=== PATIENT | female | born 1955 | race Caucasian/White ===

== ENCOUNTER 2022-03-10 01:05 | Inpatient (IN) | payer BC, MEDICARE ==
[2022-03-10] MEDS ORDERED: DILTIAZEM DRIP BOLUS FROM BAG 1 MG SOLN IV ONE ×3 (01:23→07:02)
[2022-03-10] MEDS: DILTIAZEM 125 MG in SODIUM CHLORIDE 0.9% 100 ML IV SCH ×3 (01:39→17:53)
[2022-03-10 01:55] LABS: Basophils # (A) 0.1 k/uL (0-0.2); Basophils % (A) 1 %; Eosinophils # (A) 0.1 k/uL (0-0.7); Eosinophils % (A) 1 %; HCT 38.6 % (34.0-46.0); HGB 12.7 gm/dL (11.4-16.0); Lymphocytes # (A) 1.9 k/uL (1.0-4.8); Lymphocytes % (A) 21 %; MCH 31.5 pg (25.0-35.0); MCV 95.5 fL (80.0-100.0); Mean Platelet Volume 9.9; Monocytes # (A) 0.3 k/uL (0-1.0); Monocytes % (A) 3 %; Neutrophils # (A) 6.3 k/uL (1.3-7.7); Neutrophils % (A) 72 %; Platelet Count 278 k/uL (150-450); RBC 4.04 m/uL (3.80-5.40); RDW 13.5 % (11.5-15.5); WBC 8.8 k/uL (3.8-10.6)
--- NOTE | 2022-03-10 02:00 | XR ---
EXAMINATION TYPE: XR chest 1V portable DATE OF EXAM: 03/10/2022 COMPARISON: NONE HISTORY: Dysrhythmia TECHNIQUE: Single view FINDINGS: There is slight coarsening of interstitial markings. Heart size is fairly normal. No heart failure. There are no hilar masses. Bony thorax is intact. No definite pleural effusion. IMPRESSION: Mild pulmonary fibrotic changes. No heart failure.
[2022-03-10 02:05] LABS: ALT 58 U/L (4-34); AST 34 U/L (14-36); African American GFR (CKD) >90 (>60 ml/min/1.73 sqM); Albumin 4.6 g/dL (3.5-5.0); Alkaline Phosphatase 50 U/L (38-126); Anion Gap 7 mmol/L; Blood Urea Nitrogen 14 mg/dL (7-17); Calcium 9.3 mg/dL (8.4-10.2); Carbon Dioxide 21 mmol/L (22-30); Chloride 107 mmol/L (98-107); Glucose 115 mg/dL (74-99); Magnesium 2.2 mg/dL (1.6-2.3); Non-African American GFR(CKD) 80 (>60 ml/min/1.73 sqM); Potassium 4.1 mmol/L (3.5-5.1); Sodium 135 mmol/L (137-145); Total Bilirubin 0.7 mg/dL (0.2-1.3)
[2022-03-10 02:08] LABS: Partial Thromboplastin Time 25.5 sec (22.0-30.0); Prothrombin Time 11.1 sec (9.0-12.0)
[2022-03-10] MEDS ORDERED: NITROGLYCERIN SL TABS 0.4 MG TAB SUBLINGUAL PRN (04:52)
[2022-03-10] MEDS: SODIUM CHLORIDE 0.9% 1,000 ML IV SCH (06:02)
--- NOTE | 2022-03-10 08:08 | ED ---
SOB HPI - General Chief Complaint: Shortness of Breath Stated Complaint: KARLY Time Seen by Provider: 03/10/22 01:22 Source: patient Mode of arrival: ambulatory Limitations: no limitations - History of Present Illness Initial Comments: 's patient is a 66-year-old woman with previous history of paroxysmal atrial fibrillation. The patient states that she feels she went back into atrial fibrillation around 3 in the morning on March 09. The patient states she was in bed and woke feeling short of breath and also noted palpitations. She was not having any chest pain. Patient states her episodes of atrial fibrillation are becoming more frequent. She thinks that over the past couple of weeks she may have been spending more time in A. fib then in sinus rhythm. She states that she is scheduled to have an ablation this month with Dr. Muñoz. The patient is not having any other anginal symptoms, no diaphoresis, syncope, nausea or vomiting. She had spoken with the on-call line and was instructed to come to the ER she was not feeling better. MD Complaint: shortness of breath Onset/Timin -: hour(s) Severity scale (1-10): 0 Consistency: constant Improves With: nothing Worsens With: lying flat Known History Of: other (Atrial fibrillation) Associated Symptoms: cough, palpitations Treatments Prior to Arrival: none - Related Data Home Oxygen Therapy: No Allergies Allergy/AdvReac Type Severity Reaction Status Date / Time aspirin Allergy Unknown Verified 03/10/22 01:09 Review of Systems ROS Statement: Those systems with pertinent positive or pertinent negative responses have been documented in the HPI. ROS Other: All systems not noted in ROS Statement are negative. Constitutional: Denies: fever, chills, weakness Respiratory: Reports: cough, dyspnea. Denies: hemoptysis Cardiovascular: Reports: palpitations, orthopnea. Denies: chest pain, edema, syncope Gastrointestinal: Denies: abdominal pain, nausea, vomiting, diarrhea Genitourinary: Denies: dysuria, hematuria Musculoskeletal: Denies: back pain Skin: Denies: rash Neurological: Denies: headache, weakness Past Medical History Past Medical History: Atrial Fibrillation, Cancer, Hypertension Additional Past Medical History / Comment(s): breast cancer History of Any Multi-Drug Resistant Organisms: None Reported Past Surgical History: Breast Surgery Past Anesthesia/Blood Transfusion Reactions: No Reported Reaction Past Psychological History: No Psychological Hx Reported Smoking Status: Former smoker Past Alcohol Use History: None Reported Past Drug Use History: None Reported General Exam Limitations: no limitations General appearance: alert, in no apparent distress Head exam: Present: atraumatic, normocephalic Eye exam: Present: normal appearance. Absent: scleral icterus, conjunctival injection Neck exam: Present: normal inspection Respiratory exam: Present: rales (There are crackles at the bases the lungs bilaterally). Absent: respiratory distress, wheezes, rhonchi, stridor, accessory muscle use Cardiovascular Exam: Present: tachycardia, irregular rhythm (Heart rate is in the upper 120s at my exam), normal heart sounds. Absent: systolic murmur, diastolic murmur, rubs, gallop GI/Abdominal exam: Present: soft. Absent: distended, tenderness, guarding, rebound, rigid, mass, pulsatile mass, hernia Extremities exam: Present: normal inspection, normal capillary refill. Absent: pedal edema, calf tenderness Back exam: Present: normal inspection. Absent: CVA tenderness (R), CVA tenderness (L) Neurological exam: Present: alert Skin exam: Present: warm, dry, intact, normal color. Absent: rash Course Vital Signs 03/10/22 03/10/22 03/10/22 01:09 05:20 05:36 Temperature 98.2 F 98 F Pulse Rate 91 140 H Pulse Rate [ 126 H Pulse Oximetery ] Respiratory 18 17 18 Rate Blood Pressure 121/90 112/60 Blood Pressure 119/83 [Left Arm] O2 Sat by Pulse 97 98 100 Oximetry Medical Decision Making - Medical Decision Making This patient is a 66-year-old woman with history of atrial fibrillation who presents with atrial fibrillation and rapid ventricular rate. She is started on Cardizem, resumed bolus and IV drip. Her rate slowed from the 140s to the 1 teens to 120s. Her respiratory status has improved somewhat. Case is discussed with Dr. Gómez johnson admit. We'll obtain cardiology consultation and serial cardiac enzymes. - Lab Data Result diagrams: 03/10/22 01:42 03/10/22 01:42 Lab Results 03/10/22 03/10/22 03/10/22 Range/Units 01:42 01:42 01:42 WBC 8.8 (3.8-10.6) k/uL RBC 4.04 (3.80-5.40) m/uL Hgb 12.7 (11.4-16.0) gm/dL Hct 38.6 (34.0-46.0) % MCV 95.5 (80.0-100.0) fL MCH 31.5 (25.0-35.0) pg MCHC 33.0 (31.0-37.0) g/dL RDW 13.5 (11.5-15.5) % Plt Count 278 (150-450) k/uL MPV 9.9 Neutrophils % 72 % Lymphocytes % 21 % Monocytes % 3 % Eosinophils % 1 % Basophils % 1 % Neutrophils # 6.3 (1.3-7.7) k/uL Lymphocytes # 1.9 (1.0-4.8) k/uL Monocytes # 0.3 (0-1.0) k/uL Eosinophils # 0.1 (0-0.7) k/uL Basophils # 0.1 (0-0.2) k/uL PT 11.1 (9.0-12.0) sec INR 1.0 (<1.2) APTT 25.5 (22.0-30.0) sec Sodium 135 L (137-145) mmol/L Potassium 4.1 (3.5-5.1) mmol/L Chloride 107 (98-107) mmol/L Carbon Dioxide 21 L (22-30) mmol/L Anion Gap 7 mmol/L BUN 14 (7-17) mg/dL Creatinine 0.79 (0.52-1.04) mg/dL Est GFR (CKD-EPI)AfAm >90 (>60 ml/min/1.73 sqM) Est GFR (CKD-EPI)NonAf 80 (>60 ml/min/1.73 sqM) Glucose 115 H (74-99) mg/dL Calcium 9.3 (8.4-10.2) mg/dL Magnesium 2.2 (1.6-2.3) mg/dL Total Bilirubin 0.7 (0.2-1.3) mg/dL AST 34 (14-36) U/L ALT 58 H (4-34) U/L Alkaline Phosphatase 50 (38-126) U/L Troponin I (0.000-0.034) ng/mL Total Protein 7.0 (6.3-8.2) g/dL Albumin 4.6 (3.5-5.0) g/dL TSH 5.290 H (0.465-4.680) mIU/L 03/10/22 Range/Units 01:42 WBC (3.8-10.6) k/uL RBC (3.80-5.40) m/uL Hgb (11.4-16.0) gm/dL Hct (34.0-46.0) % MCV (80.0-100.0) fL MCH (25.0-35.0) pg MCHC (31.0-37.0) g/dL RDW (11.5-15.5) % Plt Count (150-450) k/uL MPV Neutrophils % % Lymphocytes % % Monocytes % % Eosinophils % % Basophils % % Neutrophils # (1.3-7.7) k/uL Lymphocytes # (1.0-4.8) k/uL Monocytes # (0-1.0) k/uL Eosinophils # (0-0.7) k/uL Basophils # (0-0.2) k/uL PT (9.0-12.0) sec INR (<1.2) APTT (22.0-30.0) sec Sodium (137-145) mmol/L Potassium (3.5-5.1) mmol/L Chloride (98-107) mmol/L Carbon Dioxide (22-30) mmol/L Anion Gap mmol/L BUN (7-17) mg/dL Creatinine (0.52-1.04) mg/dL Est GFR (CKD-EPI)AfAm (>60 ml/min/1.73 sqM) Est GFR (CKD-EPI)NonAf (>60 ml/min/1.73 sqM) Glucose (74-99) mg/dL Calcium (8.4-10.2) mg/dL Magnesium (1.6-2.3) mg/dL Total Bilirubin (0.2-1.3) mg/dL AST (14-36) U/L ALT (4-34) U/L Alkaline Phosphatase (38-126) U/L Troponin I <0.012 (0.000-0.034) ng/mL Total Protein (6.3-8.2) g/dL Albumin (3.5-5.0) g/dL TSH (0.465-4.680) mIU/L - EKG Data -: EKG Interpreted by Me EKG shows normal: axis (Normal), intervals (Normal) Rate: tachycardia Interpretation: nonspecific ST-T wave changes, other (Underlying rhythm is atrial fibrillation with rate approximately 140s) Critical Care Time Critical Care Time: Yes (30 minutes) Disposition Clinical Impression: Atrial fibrillation with rapid ventricular response Disposition: ADMITTED IP TO THIS HOSP Condition: Fair Is patient prescribed a controlled substance at d/c from ED?: No
[2022-03-10] MEDS ORDERED: HEPARIN SODIUM,PORCINE/PF 5,000 UNIT/0.5 ML SYRINGE SQ SCH (09:00)
[2022-03-10] MEDS: METOPROLOL TARTRATE 25 MG TAB PO SCH ×3 (09:17→23:13)
[2022-03-10] MEDS: FAMOTIDINE 20 MG/2 ML VIAL IV SCH ×2 (09:17→20:20)
[2022-03-10] MEDS: APIXABAN 5 MG TAB PO SCH ×2 (09:17→20:20)
--- NOTE | 2022-03-10 09:28 | P.HPIM ---
History of Present Illness This is a pleasant 66 years old female with past medical history of Atrial Fibrillation on liquids at home, breast Cancer, Hypertension. She sees Dr. SHABANA Rogers her senior infrastructure architect. Presents because of increasing shortness of breath over the last 2 days. No chest pain. She has dry cough. And generalized weakness. She denies any abdominal pain or vomiting. No dysuria. No headache or dizziness. No weakness or numbness. No fever. She was taken her medication including Eliquis at home. No history of smoking, alcohol or illicit drugs. On admission she was tachycardic 140, rest of vitals LOOKS stable. Labs including CBC, INR, BMP, liver enzymes are unremarkable. TSH is elevated 5.2 Chest x-ray: Mild pulmonary fibrotic changes. No heart failure. Patient was started on aspirin and Cardizem drip Review of Systems CONSTITUTIONAL: No fever, no malaise, no fatigue. HEENT: No recent visual problems or hearing problems. Denied any sore throat. CARDIOVASCULAR: No orthopnea, PND, no palpitations, no syncope. PULMONARY: No chest wall tenderness, no hemoptysis. GASTROINTESTINAL: No diarrhea, no nausea, no vomiting, no abdominal pain. Normoactive bowel sounds. NEUROLOGICAL: No headaches, no weakness, no numbness. HEMATOLOGICAL: Denies any bleeding or petechiae. GENITOURINARY: Denies any burning micturition, frequency, or urgency. MUSCULOSKELETAL/RHEUMATOLOGICAL: Denies any joint pain, swelling, or any muscle pain. ENDOCRINE: Denies any polyuria or polydipsia. Past Medical History Past Medical History: Atrial Fibrillation, Cancer, Hypertension Additional Past Medical History / Comment(s): breast cancer History of Any Multi-Drug Resistant Organisms: None Reported Past Surgical History: Breast Surgery Past Anesthesia/Blood Transfusion Reactions: No Reported Reaction Past Psychological History: No Psychological Hx Reported Smoking Status: Former smoker Past Alcohol Use History: None Reported Past Drug Use History: None Reported Medications and Allergies Allergies Allergy/AdvReac Type Severity Reaction Status Date / Time aspirin Allergy Unknown Verified 03/10/22 01:09 Physical Exam Vitals: Vital Signs Temp Pulse Pulse Resp BP BP BP 03/10/22 08:35 98.3 F 131 H 14 111/81 03/10/22 07:11 124 H 107/81 03/10/22 06:57 147 H 122/79 03/10/22 05:36 98 F 126 H 18 119/83 03/10/22 05:20 140 H 17 112/60 03/10/22 01:09 98.2 F 91 18 121/90 Pulse Ox 03/10/22 08:35 97 03/10/22 07:11 03/10/22 06:57 03/10/22 05:36 100 03/10/22 05:20 98 03/10/22 01:09 97 Intake and Output 03/09/22 03/10/22 03/10/22 22:59 06:59 14:59 Intake Total 118 Balance 118 Intake: Oral 118 Other: # Voids 1 Weight 88.451 kg -GENERAL: The patient is alert and oriented x3, not in any acute distress. Obese HEENT: Pupils are round and equally reacting to light. EOMI. No scleral icterus. No conjunctival pallor. Normocephalic, atraumatic. No pharyngeal erythema. No thyromegaly. CARDIOVASCULAR: S1 and S2 present. No murmurs, rubs, or gallops. PULMONARY: Chest is clear to auscultation, no wheezing or crackles. ABDOMEN: Soft, nontender, nondistended, normoactive bowel sounds. No palpable organomegaly. MUSCULOSKELETAL: No joint swelling or deformity. EXTREMITIES: No cyanosis, clubbing, or pedal edema. NEUROLOGICAL: Gross neurological examination did not reveal any focal deficits. SKIN: No rashes. No petechiae Results CBC & Chem 7: 03/10/22 01:42 03/10/22 01:42 Labs: Abnormal Lab Results - Last 24 Hours (Table) 03/10/22 Range/Units 01:42 Sodium 135 L (137-145) mmol/L Carbon Dioxide 21 L (22-30) mmol/L Glucose 115 H (74-99) mg/dL ALT 58 H (4-34) U/L TSH 5.290 H (0.465-4.680) mIU/L Thrombosis Risk Factor Assmnt - Choose All That Apply Any of the Below Risk Factors Present?: Yes Each Risk Factor Represents 2 Points: Age 61-74 years Thrombosis Risk Factor Assessment Total Risk Factor Score: 2 Thrombosis Risk Factor Assessment Level: Low Risk Assessment and Plan Assessment: A. fib with RVR Hypertension History of breast cancer Plan: This is a pleasant 66 years old female who presents with A. fib and RVR Continue with Cardizem drip Cardiology consult check thyroid test Labs and medication were reviewed.. Continue same treatment. Continue with symptomatic treatment. Resume home medication. Monitor lytes and vitals. DVT and GI prophylaxis. Further recommendations depends on the clinical course of the patient DVT prophylaxis: Subcutaneous heparin GI Prophylaxis: Pepcid Prognosis is guarded
--- NOTE | 2022-03-10 10:11 | P.CRDCN ---
History of Present Illness Consult date: 03/10/22 History of present illness: HISTORY OF PRESENT ILLNESS: This is a 66-year-old female with a past medical history significant for paroxysmal atrial fibrillation, hypertension, hyperlipidemia, former nicotine dependence, and prior alcohol abuse. Patient follows in the office with Dr. Rogers. We have been asked to see the patient in consultation for A. fib with RVR. Patient examined at the bedside. Patient presented to the hospital for chief complaint of palpitations. Patient was found to be in A. fib with RVR. The patient was actually seen in the office on 03/07/2022. The patient was started on Multaq. Her urine had been previously discontinued. She is scheduled for an ablation on 04/19/2022. She denies having any previous cardioversions. The patient remains in atrial fibrillation with RVR. She is on a Cardizem drip at 15 mg an hour. Blood pressure 107/81. * EKG reveals A. fib with RVR * Chest xray mild pulmonary fibrotic changes. No heart failure. * Laboratory data: WBC 8.8. Hemoglobin 12.7. Platelet count 278. Sodium 135. Potassium 4.1. BUN 14. Creatinine 0.79. Magnesium 2.2. TSH 5.290. Free T4 1 0.57. Troponin negative 2. * Current home cardiac medications include ELiquis 5mg BID, Multaq 400mg BID, irbesartan 75 mg at night, and metoprolol tartrate 25 mg 3 times a day * Most recent echocardiogram obtained in February 2020 revealed ejection fraction 55% * Cardiac catheterization history: December 2018 revealing right dominant system. Normal filling pressures and no gradient across the aortic valve. No significant obstructive CAD. REVIEW OF SYSTEMS: At the time of my exam: CONSTITUTIONAL: Denies fever or chills. HEENT: Denies blurred vision, vision changes, or eye pain. Denies hemoptysis CARDIOVASCULAR: Denies chest pain. Denies orthopnea. Denies PND. Denies palpitations RESPIRATORY: Denies shortness of breath. GASTROINTESTINAL: Denies abdominal pain. Denies nausea or vomiting. HEMATOLOGIC: Denies bleeding disorders. GENITOURINARY: Denies any blood in urine. SKIN: Denies pruitis. Denies rash. PHYSICAL EXAM: VITAL SIGNS: Reviewed. GENERAL: Well-developed in no acute distress. HEENT: Head is normocephalic. Pupils are equal, round. Sclerae anicteric. Mucous membranes of the mouth are moist. Neck supple. No JVD or thyromegaly LUNGS: Respirations even and unlabored. Lungs essentially clear to auscultation bilaterally. HEART: Tachycardic. Irregular rate and rhythm. S1 and S2 heard. ABDOMEN: Soft. Nondistended. Nontender. EXTREMITIES: Normal range of motion. No clubbing or cyanosis. Peripheral pulses intact. No lower extremity edema NEUROLOGIC: Awake and alert. Oriented x 3. ASSESSMENT: Palpitations Paroxysmal atrial fibrillation with RVR Hypertension Hyperlipidemia Former nicotine dependence Former alcohol abuse PLAN: Obtain 2D echo to assess cardiac structure and function. Will wait until patients HR are better controlled to perform echo. Continue IV Cardizem Resume home dose of metoprolol and Eliquis Resume Eliquis Hold irbesartan as patient's pressures are soft with SBP around 100-110. Patient scheduled for Ablation with Dr. Muñoz 04/19/2022 Possible CV tomorrow. NPO at midnight Further recommendations pending patient course Nurse practitioner note has been reviewed by physician. Signing provider agrees with the documented findings, assessment, and plan of care. Past Medical History Past Medical History: Atrial Fibrillation, Cancer, Hypertension Additional Past Medical History / Comment(s): breast cancer History of Any Multi-Drug Resistant Organisms: None Reported Past Surgical History: Breast Surgery Past Anesthesia/Blood Transfusion Reactions: No Reported Reaction Past Psychological History: No Psychological Hx Reported Smoking Status: Former smoker Past Alcohol Use History: None Reported Past Drug Use History: None Reported Medications and Allergies Home Medications Medication Instructions Recorded Confirmed Type Apixaban [Eliquis] 5 mg PO BID 03/10/22 03/10/22 History Cholecalciferol [Vitamin D3 (25 25 mcg PO DAILY 03/10/22 03/10/22 History Mcg = 1000 Iu)] Dronedarone HCl [Multaq] 400 mg PO BID 03/10/22 03/10/22 History Irbesartan 75 mg PO HS 03/10/22 03/10/22 History Metoprolol Tartrate 25 mg PO TID 03/10/22 03/10/22 History Simvastatin [Zocor] 20 mg PO HS 03/10/22 03/10/22 History Allergies Allergy/AdvReac Type Severity Reaction Status Date / Time aspirin Allergy Unknown Verified 03/10/22 01:09 Physical Exam Vitals: Vital Signs Temp Pulse Pulse Resp BP BP BP 03/10/22 08:35 98.3 F 131 H 14 111/81 03/10/22 07:11 124 H 107/81 03/10/22 06:57 147 H 122/79 03/10/22 05:36 98 F 126 H 18 119/83 03/10/22 05:20 140 H 17 112/60 03/10/22 01:09 98.2 F 91 18 121/90 Pulse Ox 03/10/22 08:35 97 03/10/22 07:11 03/10/22 06:57 03/10/22 05:36 100 03/10/22 05:20 98 03/10/22 01:09 97 Intake and Output 03/09/22 03/10/22 03/10/22 22:59 06:59 14:59 Intake Total 118 Balance 118 Intake: Oral 118 Other: # Voids 1 Weight 88.451 kg Results 03/10/22 01:42 03/10/22 01:42 Cardiac Enzymes 03/10/22 03/10/22 03/10/22 Range/Units 01:42 01:42 06:54 AST 34 (14-36) U/L Troponin I <0.012 <0.012 (0.000-0.034) ng/mL Coagulation 03/10/22 Range/Units 01:42 PT 11.1 (9.0-12.0) sec APTT 25.5 (22.0-30.0) sec CBC 03/10/22 Range/Units 01:42 WBC 8.8 (3.8-10.6) k/uL RBC 4.04 (3.80-5.40) m/uL Hgb 12.7 (11.4-16.0) gm/dL Hct 38.6 (34.0-46.0) % Plt Count 278 (150-450) k/uL Comprehensive Metabolic Panel 03/10/22 Range/Units 01:42 Sodium 135 L (137-145) mmol/L Potassium 4.1 (3.5-5.1) mmol/L Chloride 107 (98-107) mmol/L Carbon Dioxide 21 L (22-30) mmol/L BUN 14 (7-17) mg/dL Creatinine 0.79 (0.52-1.04) mg/dL Glucose 115 H (74-99) mg/dL Calcium 9.3 (8.4-10.2) mg/dL AST 34 (14-36) U/L ALT 58 H (4-34) U/L Alkaline Phosphatase 50 (38-126) U/L Total Protein 7.0 (6.3-8.2) g/dL Albumin 4.6 (3.5-5.0) g/dL Current Medications Generic Name Dose Route Start Last Admin Trade Name Freq PRN Reason Stop Dose Admin Apixaban 5 mg 03/10/22 09:00 03/10/22 09:17 Apixaban 5 Mg Tab PO 5 mg BID LATHA Administration Protocol Dronedarone 400 mg 03/10/22 08:30 Dronedarone 400 Mg Tab PO AC-BID LATHA Famotidine 20 mg 03/10/22 09:00 03/10/22 09:17 Famotidine 20 Mg/2 Ml Vial IV 20 mg Q12HR LATHA Administration Diltiazem HCl 125 mg/ Sodium 125 mls @ 15 mls/hr 03/10/22 01:30 03/10/22 01:39 Chloride IV 5 mg/hr .Q8H20M LATHA 5 mls/hr Administration 15 MG/HR Sodium Chloride 1,000 mls @ 20 mls/hr 03/10/22 05:00 03/10/22 06:02 Saline 0.9% IV 20 mls/hr .Q24H LATHA Administration Metoprolol Tartrate 25 mg 03/10/22 09:00 03/10/22 09:17 Metoprolol Tartrate 25 Mg Tab PO 25 mg TID LATHA Administration Nitroglycerin 0.4 mg 03/10/22 04:52 Nitroglycerin Sl Tabs 0.4 Mg Tab SUBLINGUAL Q5M PRN Chest Pain Intake and Output 03/09/22 03/10/22 03/10/22 22:59 06:59 14:59 Intake Total 118 Balance 118 Intake: Oral 118 Other: # Voids 1 Weight 88.451 kg 03/10/22 01:42 03/10/22 01:42
[2022-03-10] MEDS: DRONEDARONE 400 MG TAB PO SCH ×2 (10:38→15:55)
[2022-03-10] MEDS: ATORVASTATIN 10 MG TAB PO SCH (20:20)
[2022-03-11] MEDS: DILTIAZEM 125 MG in SODIUM CHLORIDE 0.9% 100 ML IV SCH ×4 (00:16→22:15)
[2022-03-11] MEDS: SODIUM CHLORIDE 0.9% 1,000 ML IV SCH (06:01)
[2022-03-11] MEDS: DRONEDARONE 400 MG TAB PO SCH ×2 (06:02→08:57)
[2022-03-11] MEDS: FAMOTIDINE 20 MG/2 ML VIAL IV SCH ×2 (08:57→20:50)
[2022-03-11] MEDS: METOPROLOL TARTRATE 25 MG TAB PO SCH (08:58)
[2022-03-11] MEDS: APIXABAN 5 MG TAB PO SCH ×2 (08:58→20:49)
[2022-03-11] MEDS ORDERED: ASPIRIN 325 MG TAB PO SCH (09:00)
[2022-03-11] MEDS ORDERED: METOPROLOL TARTRATE 25 MG TAB PO STA (09:56)
[2022-03-11 11:01] LABS: Chol/HDL Ratio 2.24 Ratio; LDL Cholesterol,Calculated 32.4 mg/dL (0.0-131.0)
--- NOTE | 2022-03-11 12:46 | P.PN ---
Subjective Progress Note Date: 03/11/22 HISTORY OF PRESENT ILLNESS: This is a 66-year-old female with a past medical history significant for paroxysmal atrial fibrillation, hypertension, hyperlipidemia, former nicotine dependence, and prior alcohol abuse. Patient follows in the office with Dr. Rogers. We have been asked to see the patient in consultation for A. fib with RVR. Patient examined at the bedside. Patient presented to the hospital for chief complaint of palpitations. Patient was found to be in A. fib with RVR. The patient was actually seen in the office on 03/07/2022. The patient was started on Multaq. Her urine had been previously discontinued. She is scheduled for an ablation on 04/19/2022. She denies having any previous cardioversions. The patient remains in atrial fibrillation with RVR. She is on a Cardizem drip at 15 mg an hour. Blood pressure 107/81. * EKG reveals A. fib with RVR * Chest xray mild pulmonary fibrotic changes. No heart failure. * Laboratory data: WBC 8.8. Hemoglobin 12.7. Platelet count 278. Sodium 135. Potassium 4.1. BUN 14. Creatinine 0.79. Magnesium 2.2. TSH 5.290. Free T4 1 0.57. Troponin negative 2. * Current home cardiac medications include ELiquis 5mg BID, Multaq 400mg BID, irbesartan 75 mg at night, and metoprolol tartrate 25 mg 3 times a day * Most recent echocardiogram obtained in February 2020 revealed ejection fraction 55% * Cardiac catheterization history: December 2018 revealing right dominant system. Normal filling pressures and no gradient across the aortic valve. No significant obstructive CAD. 03/11: Patient continues to be in atrial fibrillation running between 120 and 140 currently on Cardizem at 15 mg per hour and Lopressor 25 mg 3 times daily. We'll increase Lopressor to 50 mg twice daily and discussed with Dr. Peralta tomorrow if he would like to cardiovert/ablation. Patient does complain of shortness of breath with minimal activity. PHYSICAL EXAM: VITAL SIGNS: Reviewed. GENERAL: Well-developed in no acute distress. HEENT: Head is normocephalic. Pupils are equal, round. Sclerae anicteric. Mucous membranes of the mouth are moist. Neck supple. No JVD or thyromegaly LUNGS: Respirations even and unlabored. Lungs essentially clear to auscultation bilaterally. HEART: Tachycardic. Irregular rate and rhythm. S1 and S2 heard. ABDOMEN: Soft. Nondistended. Nontender. EXTREMITIES: Normal range of motion. No clubbing or cyanosis. Peripheral pulses intact. No lower extremity edema NEUROLOGIC: Awake and alert. Oriented x 3. ASSESSMENT: Palpitations Paroxysmal atrial fibrillation with RVR Hypertension Hyperlipidemia Former nicotine dependence Former alcohol abuse PLAN: Obtain 2D echo to assess cardiac structure and function. Will wait until patients HR are better controlled to perform echo. Continue IV Cardizem Resume Eliquis Increase Lopressor to 50 mg twice daily Hold irbesartan as patient's pressures are soft with SBP around 100-110. Patient scheduled for Ablation with Dr. Muñoz 04/19/2022 Possible CV Saturday. NPO at midnight Further recommendations pending patient course Nurse practitioner note has been reviewed by physician. Signing provider agrees with the documented findings, assessment, and plan of care. Objective - Vital Signs Vital signs: Vital Signs Temp 98.3 F 03/11/22 08:00 Pulse 120 H 03/11/22 08:00 Resp 18 03/11/22 08:00 BP 128/81 03/11/22 08:00 Pulse Ox 98 03/11/22 08:00 FiO2 Intake & Output 03/10/22 03/11/22 03/11/22 18:59 06:59 18:59 Intake Total 417.667 193.25 Balance 417.667 193.25 Intake: Intake, IV Titration 149.667 193.25 Amount Diltiazem 125 mg In 149.667 193.25 Sodium Chloride 0.9% 100 ml @ 15 MG/HR 15 mls/hr IV .Q8H20M [facility] Rx#: [id number] Oral 268 Other: # Voids 1 1 # Bowel Movements 1 - Labs CBC & Chem 7: 03/10/22 01:42 03/10/22 01:42
--- NOTE | 2022-03-11 16:53 | P.PN ---
Progress Note - Text Progress Note Date: 03/11/22 Presenting complaint: Heart racing Hospital course This is a pleasant 66 years old female with past medical history of Atrial Fibrillation on liquids at home, breast Cancer, Hypertension. 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 Presents because of increasing shortness of breath over the last 2 days. No chest pain. She has dry cough. And generalized weakness. She denies any abdominal pain or vomiting. No dysuria. No headache or dizziness. No weakness or numbness. No fever. She was taken her medication including Eliquis at home. No history of smoking, alcohol or illicit drugs. On admission she was tachycardic 140, rest of vitals LOOKS stable. Labs including CBC, INR, BMP, liver enzymes are unremarkable. TSH is elevated 5.2 Chest x-ray: Mild pulmonary fibrotic changes. No heart failure. Patient was started on aspirin and Cardizem drip March 5: I resumed care of the patient today. Heart rate around 100-120. Remains on Cardizem drip. Multi-. Lopressor. Up in a chair. Intermittent short of breath. Active Medications Apixaban (Apixaban 5 Mg Tab) 5 mg PO BID [facility]; Protocol Last Admin: 03/11/22 08:58 Dose: 5 mg Atorvastatin Calcium (Atorvastatin 10 Mg Tab) 10 mg PO HS [facility] Last Admin: 03/10/22 20:20 Dose: 10 mg Dronedarone (Dronedarone 400 Mg Tab) 400 mg PO AC-BID [facility] Last Admin: 03/11/22 08:57 Dose: 400 mg Famotidine (Famotidine 20 Mg/2 Ml Vial) 20 mg IV Q12HR [facility] Last Admin: 03/11/22 08:57 Dose: 20 mg Diltiazem HCl 125 mg/ Sodium (Chloride) 125 mls @ 15 mls/hr IV .Q8H20M [facility] Last Admin: 03/11/22 13:51 Dose: 15 mg/hr, 15 mls/hr Sodium Chloride (Saline 0.9%) 1,000 mls @ 20 mls/hr IV .Q24H [facility] Last Admin: 03/11/22 06:01 Dose: 20 mls/hr Metoprolol Tartrate (Metoprolol Tartrate 50 Mg Tab) 50 mg PO BID [facility] Nitroglycerin (Nitroglycerin Sl Tabs 0.4 Mg Tab) 0.4 mg SUBLINGUAL Q5M PRN PRN Reason: Chest Pain On examination: VITAL SIGNS: [97.6, 120, 14, 10 9 x 75, 97% room air] GENERAL APPEARANCE: BMI 30.5, up in a chair HEENT: Normal external appearance of nose and ear. Oral cavity normal EYES: Pupils equal. Conjunctiva normal. NECK: JVD not raised. Mass not palpable. RESPIRATORY: Respiratory effort normal. Lungs clear to auscultation. CARDIOVASCULAR: Heart sounds irregular. No edema. ABDOMEN: Soft. Liver and spleen not palpable. No tenderness. No mass palpable. PSYCHIATRY: Alert and oriented x3. Mood and affect normal. INVESTIGATIONS, reviewed in the clinical context: White count 8.8 hemoglobin 12.7 potassium 4.1 creatinine 0.79 Troponin I negative TSH 5.2 free T4 1 0.57 . EKG tracing: Atrial flutter fibrillation rate of 144 Assessment and plan: -Persistent atrial fibrillation flutter with a rapid ventricular rate. Uncontrolled. IV Cardizem drip. multaq 400 mg twice a day Lopressor. 50 mg twice a day -Hyperlipidemia Lipitor 10 mg daily at bedtime -Essential hypertension Hold Avapro. On Lopressor. Cardizem drip. -Obesity BMI 30.5 Weight loss measures Continue current medication including IV Cardizem drip. opinion from From EP. Discussed with patient.
[2022-03-11] MEDS: ATORVASTATIN 10 MG TAB PO SCH (20:49)
[2022-03-11] MEDS: METOPROLOL TARTRATE 50 MG TAB PO SCH (20:49)
[2022-03-12 04:47] VITALS: RESP 18
[2022-03-12] MEDS: DRONEDARONE 400 MG TAB PO SCH ×2 (06:54→17:15)
[2022-03-12] MEDS: SODIUM CHLORIDE 0.9% 1,000 ML IV SCH (06:54)
[2022-03-12] MEDS: DILTIAZEM 125 MG in SODIUM CHLORIDE 0.9% 100 ML IV SCH (06:55)
[2022-03-12] MEDS: METOPROLOL TARTRATE 50 MG TAB PO SCH (08:01)
[2022-03-12] MEDS: FAMOTIDINE 20 MG/2 ML VIAL IV SCH ×2 (08:01→19:57)
[2022-03-12] MEDS: APIXABAN 5 MG TAB PO SCH ×2 (08:01→19:58)
--- NOTE | 2022-03-12 11:22 | CA ---
Transthoracic Echo Report Name: Ce Ch Age: 66 Gender: F : 1955 Exam Date: 03/12/2022 08:12 Exam Location: [facility] Ht (in): 67 Wt (lb): 195 Ordering Physician: Elle Kramer Attending/Referring Phys: [id number], [place] [employer] Manager Candice Coppola RDCS Procedure CPT: Indications: LV Function, afib Cardiac Hx: Hx of afib, htn and chol. Technical Quality: Good Contrast 1: Total Dose (mL): Contrast 2: Total Dose (mL): MEASUREMENTS (Male / Female) Normal Values 2D ECHO LV Diastolic Diameter PLAX 4.9 cm 4.2 - 5.9 / 3.9 - 5.3 cm LV Systolic Diameter PLAX 1.5 cm IVS Diastolic Thickness 0.9 cm 0.6 - 1.0 / 0.6 - 0.9 cm LVPW Diastolic Thickness 1.2 cm 0.6 - 1.0 / 0.6 - 0.9 cm LV Relative Wall Thickness 0.4 RV Internal Dim ED PLAX 3.2 cm LA Volume 67.9 cm??? 18 - 58 / 22 - 52 cm??? M-MODE Aortic Root Diameter MM 3.0 cm LA Systolic Diameter MM 2.9 cm LA Ao Ratio MM 1.0 MV E Point Septal Separation 0.9 cm AV Cusp Separation MM 2.1 cm DOPPLER AV Peak Velocity 93.1 cm/s AV Peak Gradient 3.5 mmHg MR Peak Velocity 347.0 cm/s MR Peak Gradient 48.2 mmHg TR Peak Velocity 218.6 cm/s TR Peak Gradient 19.1 mmHg Right Ventricular Systolic Press 32.1 mmHg FINDINGS Left Ventricle Mildly increased posterior wall thickness. Normal Left ventricular size, systolic function with no obvious regional wall motion abnormalities. Left ventricular ejection fraction is estimated at 55-60 %. Right Ventricle The right ventricle is normal in size and function. Right Atrium The right atrium is normal in size. Left Atrium Moderately increased left atrial volume. Mildly increased left atrial area. Mitral Valve Structurally normal mitral valve without significant stenosis or prolapse. There is mod to severe mitral regurgitation. Aortic Valve Structurally normal aortic valve without significant sclerosis or stenosis. There is no aortic regurgitation. Tricuspid Valve Structurally normal tricuspid valve without significant stenosis. Pulmonary artery systolic pressure is normal. Atdc-ur-vritxniu tricuspid regurgitation. Pulmonic Valve Structurally normal pulmonic valve without significant stenosis. There is no pulmonic regurgitation. Pericardium Minimal pericardial effusion Aorta Normal aortic root dimension. CONCLUSIONS #1. Normal left ventricular size with preserved LV function. #2. Moderately increased left atrial size #3. Moderate to severe mitral regurgitation #4. Mild to moderate tricuspid regurgitation Previewed by: Dr. Brisa Fritz MD (Electronically Signed) Final Date: 12 March 2022 11:21
[2022-03-12] MEDS ORDERED: ACETAMINOPHEN TAB 325 MG TAB PO PRN ×2 (11:31→11:34)
--- NOTE | 2022-03-12 11:57 | P.PN ---
Subjective This is a 66-year-old female with a past medical history significant for paroxysmal atrial fibrillation, hypertension, hyperlipidemia, former nicotine dependence, and prior alcohol abuse. Patient follows in the office with Dr. Rogers. We have been asked to see the patient in consultation for A. fib with RVR. Patient presented to the hospital for chief complaint of palpitations. Patient was found to be in A. fib with RVR. The patient was actually seen in the office on 03/07/2022. The patient was started on Multaq. She is scheduled for an ablation on 04/19/2022. The patient remains in atrial fibrillation with RVR. She is on a Cardizem drip at 15 mg an hour. Blood pressure 116/73. Continues to have palpitations, and some mild shortness of breath. Echocardiogram revealed EF 5560%, moderately increased left atrial volume, moderate to severe mitral regurgitation, mild to moderate tricuspid regurgitation PHYSICAL EXAM: VITAL SIGNS: Reviewed. GENERAL: Well-developed in no acute distress. HEENT: Neck supple. No JVD LUNGS: Respirations even and unlabored. Lungs essentially clear to auscultation bilaterally. HEART: Tachycardic. Irregular rate and rhythm. S1 and S2 heard. ABDOMEN: Soft. Nondistended. Nontender. EXTREMITIES: Normal range of motion. No clubbing or cyanosis. Peripheral pulses intact. No lower extremity edema NEUROLOGIC: Awake and alert. Oriented x 3. ASSESSMENT: Palpitations Paroxysmal atrial fibrillation with RVR, symptomatic, on Eliquis Hypertension Hyperlipidemia Former nicotine dependence Former alcohol abuse PLAN: Continue IV Cardizem Continue Eliquis, Multaq Metoprolol tartrate 50mg BID Keep patient NPO Plan for cardioversion today with Dr. Rogers.I have discussed the risks, benefits and alternative therapies for the above-mentioned procedure and for both sedation/analgesia, if indicated, as they pertain to this patient. The patient has indicated understanding and acceptance of the risks and procedures discussed. Questions have been answered appropriately and she is agreeable to move forward with the above-stated procedure. Patient is also scheduled for Ablation with Dr. Muñoz 04/19/2022 Further recommendations pending patient course Nurse practitioner note has been reviewed by physician. Signing provider agrees with the documented findings, assessment, and plan of care. Objective - Vital Signs Vital signs: Vital Signs Temp 98.1 F 03/12/22 07:56 Pulse 110 H 03/12/22 11:37 Resp 18 03/12/22 11:37 BP 116/73 03/12/22 11:37 Pulse Ox 96 03/12/22 11:37 FiO2 Intake & Output 03/11/22 03/12/22 03/12/22 18:59 06:59 18:59 Intake Total 346.25 250 Balance 346.25 250 Intake: Intake, IV Titration 106.25 250 Amount Diltiazem 125 mg In 106.25 250 Sodium Chloride 0.9% 100 ml @ 15 MG/HR 15 mls/hr IV .Q8H20M [facility] Rx#: [id number] Oral 240 Other: Voiding Method Toilet Toilet # Voids 1 1 # Bowel Movements 1 - Labs CBC & Chem 7: 03/10/22 01:42 03/10/22 01:42
[2022-03-12] MEDS ORDERED: IV FLUID CONTINUATION 1,000 ML IV ONE (14:01)
--- NOTE | 2022-03-12 14:53 | PCN ---
PROCEDURE NOTE ELECTRICAL CARDIOVERSION REPORT: DATE OF SERVICE: 03/12/2022 PROCEDURE: Electrical cardioversion. INDICATION: Persistent symptomatic atrial fibrillation. CLINICAL INFORMATION: Mrs. Ch is a lady with relatively recent-onset atrial fibrillation, paroxysmal, but very symptomatic. Then she had more of a persistent atrial fibrillation in spite of dronedarone 400 mg b.i.d. She came to the hospital with symptoms of dizziness and lightheadedness. After controlling the rate with IV Cardizem, she was advised cardioversion. She has been consistently taking her anticoagulation. Risks, benefits, options and rationale were explained. PROCEDURE NOTE: Under the influence of [id number] intravenous anesthetic agent with the attendance of the anesthesiologist, a single 120-joule shock was delivered with anterior and posterior patches. She converted to sinus rhythm, remained hemodynamically stable and neurologically intact. This was a successful procedure. Her was informed by the nurse that this was a successful procedure. She will be discharged on 25 mg t.i.d. of metoprolol tartrate and 400 mg b.i.d. of Multaq. I will see her in the office as scheduled. She will be discharged later on today if okay with Dr. Muñoz and Dr. Deng. MMODL / IJN: [id number] /
[2022-03-12] MEDS: METOPROLOL TARTRATE 25 MG TAB PO SCH ×2 (17:14→20:08)
[2022-03-12] MEDS: ATORVASTATIN 10 MG TAB PO SCH (19:58)
[2022-03-12 20:03] VITALS: BP 120/80; PULSE 70; TEMP 97.8
--- NOTE | 2022-03-12 21:13 | P.DS ---
Providers Date of admission: 03/10/22 04:52 Expected date of discharge: 03/12/22 Attending physician: Giovanni Deng Consults: 03/10/22 04:52 Consult Physician Routine Consulting Provider: Joe Muñoz Consult Reason/Comments: Atrial fibrillation with rapid ventricular rate Do you want consulting provider notified?: Yes Primary care physician: Birdie Jones [facility] Course: Presenting complaint: Heart racing Hospital course This is a pleasant 66 years old female with past medical history of Atrial Fibrillation on liquids at home, breast Cancer, Hypertension. 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 Presents because of increasing shortness of breath over the last 2 days. No chest pain. She has dry cough. And generalized weakness. She denies any abdominal pain or vomiting. No dysuria. No headache or dizziness. No weakness or numbness. No fever. She was taken her medication including Eliquis at home. No history of smoking, alcohol or illicit drugs. On admission she was tachycardic 140, rest of vitals LOOKS stable. Labs including CBC, INR, BMP, liver enzymes are unremarkable. TSH is elevated 5.2 Chest x-ray: Mild pulmonary fibrotic changes. No heart failure. Patient was started on aspirin and Cardizem drip March 11: I resumed care of the patient today. Heart rate around 100-120. Remains on Cardizem drip. Multi-. Lopressor. Up in a chair. Intermittent short of breath. March 12: Saw the patient earlier today. Late in the day patient underwent successful cardioversion. Nurse called me that cardiology cleared the patient. No new medications. On examination: VITAL SIGNS: 97.8, 70, 18, 120/80, 93% room air GENERAL APPEARANCE: up in a chair HEENT: Normal external appearance of nose and ear. Oral cavity normal EYES: Pupils equal. Conjunctiva normal. NECK: JVD not raised. Mass not palpable. RESPIRATORY: Respiratory effort normal. Lungs clear to auscultation. CARDIOVASCULAR: Heart sounds irregular. No edema. ABDOMEN: Soft. Liver and spleen not palpable. No tenderness. No mass palpable. PSYCHIATRY: Alert and oriented x3. Mood and affect normal. INVESTIGATIONS, reviewed in the clinical context: White count 8.8 hemoglobin 12.7 potassium 4.1 creatinine 0.79 Troponin I negative TSH 5.2 free T4 1 0.57 . EKG tracing: Atrial flutter fibrillation rate of 144 Assessment and plan: -Persistent atrial fibrillation flutter with a rapid ventricular rate. DC cardioverted on March 12 IV Cardizem drip. multaq 400 mg twice a day Lopressor. 25 mg 3 times a day -Hyperlipidemia Lipitor 10 mg daily at bedtime -Essential hypertension Avapro. On Lopressor. Cardizem drip. -Obesity BMI 30.5 Weight loss measures Disposition: Home Patient Condition at Discharge: Fair Plan - Discharge Summary Discharge Rx Participant: No New Discharge Prescriptions: Continue Dronedarone HCl [Multaq] 400 mg PO BID Simvastatin [Zocor] 20 mg PO HS Metoprolol Tartrate [Lopressor] 25 mg PO TID Irbesartan [Avapro] 75 mg PO DAILY Apixaban [Eliquis] 5 mg PO BID Cholecalciferol [Vitamin D3 (25 Mcg = 1000 Iu)] 50 mcg PO DAILY Discharge Medication List Apixaban [Eliquis] 5 mg PO BID 03/10/22 [History] Cholecalciferol [Vitamin D3 (25 Mcg = 1000 Iu)] 50 mcg PO DAILY 03/10/22 [History] Dronedarone HCl [Multaq] 400 mg PO BID 03/10/22 [History] Irbesartan [Avapro] 75 mg PO DAILY 03/10/22 [History] Metoprolol Tartrate [Lopressor] 25 mg PO TID 03/10/22 [History] Simvastatin [Zocor] 20 mg PO HS 03/10/22 [History] Follow up Appointment(s)/Referral(s): Lawrence Rogers MD [STAFF PHYSICIAN] - 1 Week (Office is closed. Please call to schedule appointment) Birdie Jonse MD [Primary Care Provider] - 1 Week (Please schedule appointment) Patient Instructions/Handouts: Cardioversion (DC) Discharge Disposition: HOME SELF-CARE
== END 2022-03-12 20:29 | disposition home or self-care (01) | DRG 310 ==
LOC: EC 01:05 → 3SCARD 04:52
PROVIDERS: ADMIT Hospitalist; ATTEND Hospitalist
PROC: 5A2204Z Restoration of Cardiac Rhythm, Single (ICD-10-PCS; principal; 2022-03-12 12:35)
DX: I48.19 Other persistent atrial fibrillation (principal); E78.5 Hyperlipidemia, unspecified; I10 Essential (primary) hypertension; E66.9 Obesity, unspecified; Z68.30 Body mass index [BMI] 30.0-30.9, adult; I48.92 Unspecified atrial flutter; I34.0 Nonrheumatic mitral (valve) insufficiency; Z79.01 Long term (current) use of anticoagulants; Z79.899 Other long term (current) drug therapy; Z87.891 Personal history of nicotine dependence; Z85.3 Personal history of malignant neoplasm of breast; Z88.6 Allergy status to analgesic agent; Z72.89 Other problems related to lifestyle
CPT/HCPCS: 36415; 71045; 80053; 80061; 83735; 84439; 84443; 84484; 85025; 85610; 85730; 92960; 93005; 93306; 96374; 96376; 99291

== ENCOUNTER 2022-03-29 07:57 | Day surgery (SDC) | payer BC ==
[2022-03-27 15:49] VITALS: BMI 30.5
[2022-03-29] MEDS ORDERED: SODIUM CHLORIDE 0.9% 1,000 ML IV ONE (08:09)
[2022-03-29] MEDS ORDERED: HEPARIN SODIUM,PORCINE 10,000 UNIT/ML 1 ML VIAL ONE (09:46)
[2022-03-29] MEDS ORDERED: MIDAZOLAM 2 MG/2 ML VIAL ONE (09:46)
[2022-03-29] MEDS ORDERED: SUCCINYLCHOLINE CHLORIDE 100 MG/5 ML SYR IV ONE (09:46)
[2022-03-29] MEDS ORDERED: ONDANSETRON 4 MG/2 ML VIAL ONE (09:46)
[2022-03-29] MEDS ORDERED: PROPOFOL 10 MG/ML 20 ML VIAL IV ONE (09:46)
[2022-03-29] MEDS ORDERED: LIDOCAINE 2% INJ 20 MG/ML (2 ML VIAL) ONE (09:46)
[2022-03-29] MEDS ORDERED: DEXAMETHASONE SOD PHOSPHATE 10 MG/ML 1 ML VIAL ONE (09:46)
[2022-03-29] MEDS ORDERED: fentaNYL (PF) 50 MCG/ML 2 ML AMP ONE (09:46)
[2022-03-29] MEDS ORDERED: PHENYLEPHRINE-0.9% NACL SYG 1,000 MCG/10 ML SYRINGE ONE (09:46)
[2022-03-29] MEDS ORDERED: HEPARIN SOD,PORK IN 0.45% NACL 25,000 UNIT in 0.45% NACL 1 250ML.BAG IV ONE (10:11)
[2022-03-29] MEDS ORDERED: LIDOCAINE 1% PF 10 MG/ML (5 ML AMP) SQ ONE ×3 (10:31→10:33)
[2022-03-29] MEDS ORDERED: IOPAMIDOL-370 100ML BTL INJ ONE (12:40)
[2022-03-29] MEDS ORDERED: ACETAMINOPHEN IV (For NPO) 1,000 MG in EMPTY BAG 1 BAG IVPB ONE (13:09)
[2022-03-29] MEDS ORDERED: ACETAMINOPHEN TAB 325 MG TAB PO PRN (13:09)
--- NOTE | 2022-03-29 13:17 | P.EPPROC ---
- EP Procedure Note Electrophysiology Procedure Note: PROCEDURE A. fib ablation, PVI and roofline DIAGNOSIS Persistent Atrial fibrillation, symptomatic, refractory to therapy Surface ECG suggests atrial tachycardia, intracardiac electrograms confirm disorganized atrial fibrillation RESULT No left atrial appendage mass seen on intracardiac echo Reduced LV systolic function on intracardiac echo, stop Multaq Severely enlarged right and left atria Elevated RA and LA pressure is Thickened pericardium, chronic pericarditis Successful A. fib ablation/pulmonary vein isolation of all veins using cryo- ablation Complete entrance block in all 4 veins confirmed Linear ablation in the left atrial roof No evidence for phrenic nerve injury Esophageal deflection YES, extreme right-sided esophagus Electrical cardioversion with a synchronized shock across the chest YES PROCEDURE DETAILS Patient was brought to the EP lab in a fasting state after obtaining written informed consent. Procedure performed under general anesthesia Esophagus was intubated. Esophageal temperature monitoring with circa catheter. Esophageal deflection with an endoscope to avoid hypothermia of the esophagus. After initial muscle relaxant use, muscle relaxants were not given thereafter in order to assess phrenic nerve during procedure. Patient prepped and draped as per protocol Cryo ablation-set up with standard preparation of the cryoablation tools done. Femoral Venous access obtained on the right and left groins and sheaths placed Diagnostic catheters for the high right atrium, phrenic nerve stimulation and pacing, His bundle, coronary sinus placed Intracardiac echo catheter placed. Long sheath placed in the right atrium Left and right transseptal catheterization performed under intracardiac echo guidance. Intravenous heparin with aCT above 300 Later, catheter positioning and balloon positioning in the left atrium and pulmonary veins, under intracardiac echo guidance Diagnostic EP study with coronary sinus pacing and recording Baseline measurements: Sinus cycle length: 129, MN 131, QRS 78 and QT 494 ms HV 44 Transseptal catheterization performed RA pressure 21/12/17 LA pressure 37/7/26 Transseptal catheterization performed with standard sheath. The cryoablation sheath was then placed with an over the wire exchange without any acute complications. The cryoablation balloon was placed in the office of each pulmonary vein and all 4 pulmonary veins were isolated. IV dye was injected to confirm occlusion. Goal: achieve complete occlusion of the pulmonary vein, achieve -30 degrees C at 30 seconds and achieve -40 degrees C at 60 seconds and a time to effect of less than 60 seconds. If not, the balloon was repositioned to obtain this result After completion of Cryoblation with durations from 180-240 seconds, entrance block was confirmed with the Attain circular catheter in a roving fashion around the antrum of the pulmonary veins Phrenic nerve pacing was performed from the SVC, right innominate vein area and diaphragm voltage was monitored. Diaphragmatic contractions were also monitored manually for strength of contraction. At the end of the procedure the Achieve catheter was once again used to check for entrance block performed from the left superior to the right superior pulmonary veins. Contiguous cryoablation lesions delivered with adequate overlapping Phrenic nerve stimulation was performed to confirm diaphragmatic stimulation the end of the procedure Cine fluoroscopy was performed at the very end of the procedure to confirm movement of both diaphragms with inspiration and expiration With PVI and left atrial roofline, some organization of atrial fibrillation but patient remained in A. fib despite this Successful electrical cardioversion to sinus rhythm with a 200 J shock At the end of the procedure the patient was extubated Venous sheaths were removed and hemostasis assured with a closure device PROCEDURES PERFORMED Diagnostic EP study CS pacing and recording Left and right transseptal catheterization Catheter the mapping of the tachycardia Intracardiac echocardiography Pulmonary vein isolation with transseptal and comprehensive EPS, [id number] Left atrial roof line, [id number] Electrical cardioversion with a synchronized shock across the chest [id number]
--- NOTE | 2022-03-29 13:20 | P.PRLE ---
RE: Ce Ch Dear Dr. Robert Encinas underwent A. fib ablation with pulmonary vein isolation and linear ablation of left atrial roof A pulmonary veins are completely isolated However intracardiac echo revealed 1. Very dilated right atrium with elevated pressures, mean RA pressure 17 mmHg #2 very dilated left atrium. mean LA pressure 26 mmHg #3 evidence for chronic pericarditis with a very trace effusion/thickened pericardium #4 reduced LV systolic function I would continue ELIQUIS lifelong and discontinue Multaq If she has further episodes of atrial fibrillation I would recommend amiodarone for now Thank you for entrusting me with the care of the patient Warm regards Sincerely Joe Muñoz
[2022-03-29 13:21] VITALS: RESP 16
--- NOTE | 2022-03-29 13:33 | P.HPCAR ---
History of Present Illness This is Dr. Muñoz dictating an H/P on this patient The patient was interviewed and examined IMPRESSION / ASSESSMENT: Increase frequency of palpitations and shortness of breath with minimal exertion Exhaustion tiredness and fatigue along with shortness of breath on exertion Normal coronary arteries in 2019 Normal LV systolic function 2020 Normal TSH History of smoking History of alcohol use Hypertension PLAN: Stable to proceed with A. fib ablation under general anesthesia this morning Pulmonary vein isolation Linear ablation of left atrial roof HPI Dr. Muñoz complains of increased palpitations with exertion She complains of exhaustion tiredness fatigue and shortness of breath No syncope no fever chills cough ROS: No fever chills or rigors, no cough, phlegm or expectoration, no nausea, vomiting or diarrhea, no hematuria, dysuria, no musculoskeletal complaints, no strokes or seizures, no skin lesions. EXAMINATION: 120/71 mmHg pulse rate in the 50s afebrile Breath sounds are clear no rhonchi no crackles Heart sounds S1 and S2 normal but irregular Abdomen soft No JVD No lower extremity edema REVIEW OF LABS, ECG & MEDICAL DATA Hives with aspirin Physical Exam Vitals: Vital Signs Temp Pulse Pulse Resp BP Pulse Ox 03/29/22 13:25 56 L 16 105/73 99 03/29/22 13:18 57 L 16 104/70 100 03/29/22 13:03 97 F L 58 L 18 120/71 99 03/29/22 08:13 98.5 F 115 H 16 120/88 99 Intake and Output 03/28/22 03/29/22 03/29/22 22:59 06:59 14:59 Intake Total 622 Balance 622 Intake: IV 622 Past Medical History Past Medical History: Atrial Fibrillation, Cancer, COPD, Hypertension Additional Past Medical History / Comment(s): see Dr Muñoz H&P, breast cancer, occ SOB, recent elevated thryoid lab work, sore lower leg-slipped on truck running board. History of Any Multi-Drug Resistant Organisms: None Reported Past Surgical History: Breast Surgery, Heart Catheterization Additional Past Surgical History / Comment(s): milo masectomy, Past Anesthesia/Blood Transfusion Reactions: No Reported Reaction Smoking Status: Former smoker - Past Family History Father Family Medical History: Cancer Physical Examination Vital Signs Temp Pulse Pulse Resp BP Pulse Ox 03/29/22 13:25 56 L 16 105/73 99 06/23/22 13:18 57 L 16 104/70 100 03/29/22 13:03 97 F L 58 L 18 120/71 99 03/29/22 08:13 98.5 F 115 H 16 120/88 99 Intake and Output 03/28/22 03/29/22 03/29/22 22:59 06:59 14:59 Intake Total 622 Balance 622 Intake: IV 622 Results Current Medications Generic Name Dose Route Start Last Admin Trade Name Freq PRN Reason Stop Dose Admin Acetaminophen 650 mg 03/29/22 13:09 Acetaminophen Tab 325 Mg Tab PO 04/28/22 13:10 Q6HR PRN Mild Pain Apixaban 5 mg 03/29/22 21:00 Apixaban 5 Mg Tab PO 04/28/22 21:01 BID LATHA Protocol Lactated Ringer's 1,000 mls @ 20 mls/hr 03/29/22 06:03 Lactated Ringers IV 04/28/22 06:04 .Q24H LATHA Sodium Chloride 1,000 mls @ 20 mls/hr 03/29/22 06:03 Saline 0.9% IV 04/28/22 06:04 .Q24H LATHA Acetaminophen 1,000 mg/ IV 100 mls @ 400 mls/hr 03/29/22 13:09 Solution IVPB 03/29/22 13:23 ONCE ONE Magnesium Oxide 400 mg 03/29/22 14:00 Magnesium Oxide 400 Mg Tab PO 04/28/22 14:01 1400 LATHA Metoprolol Tartrate 25 mg 03/29/22 21:00 Metoprolol Tartrate 50 Mg Tab PO 04/28/22 21:01 BID LATHA Non-Formulary Medication 75 mg 03/29/22 21:00 Irbesartan [Avapro] PO 04/28/22 21:01 HS LATHA Non-Formulary Medication 20 mg 03/29/22 21:00 Simvastatin PO 04/28/22 21:01 HS LATHA Sodium Chloride 12 ml 03/29/22 13:09 Sodium Chloride 0.9% Flush 10 Ml Syringe IV 04/28/22 13:10 Q12HR PRN Line Flush Intake and Output 03/28/22 03/29/22 03/29/22 22:59 06:59 14:59 Intake Total 622 Balance 622 Intake: IV 622
[2022-03-29] MEDS ORDERED: MAGNESIUM OXIDE 400 MG TAB PO SCH (14:00)
[2022-03-29] MEDS: LACTATED RINGERS 1,000 ML IV SCH (16:46)
[2022-03-29] MEDS: SODIUM CHLORIDE 0.9% 1,000 ML IV SCH (16:46)
[2022-03-29] MEDS: APIXABAN 5 MG TAB PO SCH (20:47)
[2022-03-29] MEDS: METOPROLOL TARTRATE 25 MG TAB PO SCH (20:48)
[2022-03-29] MEDS ORDERED: ATORVASTATIN 10 MG TAB PO SCH (21:00)
[2022-03-29] MEDS ORDERED: LOSARTAN 50 MG TAB PO SCH (21:00)
[2022-03-30] MEDS: SODIUM CHLORIDE 0.9% 1,000 ML IV SCH (07:12)
[2022-03-30] MEDS: LACTATED RINGERS 1,000 ML IV SCH (07:12)
[2022-03-30 07:24] VITALS: BP 105/69; PULSE 75; TEMP 98.2
[2022-03-30] MEDS: APIXABAN 5 MG TAB PO SCH (09:16)
[2022-03-30] MEDS: METOPROLOL TARTRATE 25 MG TAB PO SCH (09:17)
--- NOTE | 2022-03-30 09:19 | P.DS ---
Providers Attending physician: Joe Muñoz Primary care physician: Birdie Joseroy [facility] Course: Patient is doing well. No chest discomfort dizziness lightheadedness Minimal soreness in the right and left groins no hematoma Normal heart sounds no murmurs or gallops no rub Twelve-lead EKG is normal no atrial fibrillation Heart sounds S1 and S2 are normal no rub no murmurs Lungs are clear no rhonchi no crackles No JVD No lower extremity edema Blood pressure 112/76. 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 It looks like an atrial tachycardia the intracardiac electrograms consistent with disorganized atrial fibrillation Suggest Continue anticoagulation lifelong Absolutely no alcohol, complete abstinence, this was discussed with the patient and made clear Stop Multaq Continue beta blockers Continue Avapro Follow Dr. Rogers in a week Stable from a cardiac stress standpoint for discharge Plan - Discharge Summary Discharge Rx Participant: No New Discharge Prescriptions: Discontinued Dronedarone HCl [Multaq] 400 mg PO BID No Action Simvastatin [Zocor] 20 mg PO HS Metoprolol Tartrate [Lopressor] 25 mg PO TID Irbesartan [Avapro] 75 mg PO HS Cyclobenzaprine [Flexeril] 10 mg PO HS Albuterol Sulfate Inhaler 1 - 2 puff IH Q4HR PRN PRN Reason: Shortness Of Breath Apixaban [Eliquis] 5 mg PO BID Cholecalciferol [Vitamin D3 (25 Mcg = 1000 Iu)] 50 mcg PO DAILY Vitamin E [Vitamin E (1000 Iu = 450 MG)] 1,000 unit PO 1400 Magnesium Oxide 400 mg PO 1400 Discharge Medication List Apixaban [Eliquis] 5 mg PO BID 03/10/22 [History] Cholecalciferol [Vitamin D3 (25 Mcg = 1000 Iu)] 50 mcg PO DAILY 03/10/22 [History] Irbesartan [Avapro] 75 mg PO HS 03/10/22 [History] Metoprolol Tartrate [Lopressor] 25 mg PO TID 03/10/22 [History] Simvastatin [Zocor] 20 mg PO HS 03/10/22 [History] Albuterol Sulfate Inhaler 1 - 2 puff IH Q4HR PRN 03/27/22 [History] Cyclobenzaprine [Flexeril] 10 mg PO HS 03/27/22 [History] Magnesium Oxide 400 mg PO 1400 03/27/22 [History] Vitamin E [Vitamin E (1000 Iu = 450 MG)] 1,000 unit PO 1400 03/27/22 [History] Follow up Appointment(s)/Referral(s): Lawrence Rogers MD [STAFF PHYSICIAN] - 1 Week Activity/Diet/Wound Care/Special Instructions: Post EP study - Ablation instructions 1. Keep access sites dry for 2 days. 2. No heavy lifting or straining for 2 days. 3. Avoid bending the hips repeatedly for 2 days. 4. You may go up and down stairs slowly Call if the following is noted 1. Bleeding, increasing swelling or pain at the access sites. 2. Increasing chest discomfort, especially upon taking a deep breath. 3. Increasing shortness of breath, at rest or with exertion. 4. Undue cough / phlegm 5. Difficulty or pain while swallowing. 6. Pain or change in color in the extremities. 7. Fever, chills, rigors. 8. Increasing headache or neurologic symptoms. 9. Dizziness, fainting, palpitations Hold Multaq Continue ELIQUIS Discharge Disposition: HOME SELF-CARE
== END 2022-03-30 10:49 | disposition home or self-care (01) ==
LOC: CATHEP 07:57 → 6NMEDSUR 13:41 → CATHEP 03-30 10:49
PROVIDERS: ATTEND Internal Medicine Clinical Cardiac Electrophysiology
DX: I48.19 Other persistent atrial fibrillation (principal); I31.9 Disease of pericardium, unspecified; R00.1 Bradycardia, unspecified; I10 Essential (primary) hypertension; J44.9 Chronic obstructive pulmonary disease, unspecified; E78.5 Hyperlipidemia, unspecified; Z87.891 Personal history of nicotine dependence; Z20.822 Contact with and (suspected) exposure to COVID-19; Z79.01 Long term (current) use of anticoagulants; Z79.899 Other long term (current) drug therapy; Z88.6 Allergy status to analgesic agent
CPT/HCPCS: 92960; 93656; 87635; C1894 ×2; C1769 ×5; C1760; C1730 ×2; C1759; C1893; C1733; C1766; J2250; J1644 ×2; J1100; J2405; J2001 ×2; J3010; J2370; J0330; J2704; Q9967

== ENCOUNTER 2022-04-22 14:41 | Emergency (ER) | payer BC, MEDICARE ==
[2022-04-22 14:47] VITALS: BP 158/105; TEMP 98.1
[2022-04-22] MEDS ORDERED: LORazepam 2 MG/ML INJ IV STA (15:13)
--- NOTE | 2022-04-22 15:21 | ED ---
General Adult HPI - General Chief complaint: Shortness of Breath Stated complaint: KARLY,Chest Tightness Time Seen by Provider: 04/22/22 14:59 Source: patient, RN notes reviewed, old records reviewed Mode of arrival: wheelchair Limitations: no limitations - History of Present Illness Initial comments: This is a 66-year-old female who presents emergency Department with a past medical history significant for atrial fibrillation. Patient states she is on eliquis. Patient states she started had an ablation and she is scheduled for a second ablation. Patient states yesterday she started becoming short of breath and it continues today and probably is a little worse today. Patient denies any chest pain patient denies any recent fever chills or cough. Patient denies abdominal pain. Patient denies any nausea vomiting diarrhea. Patient states it's difficult for her to get a deep breath and then she feels as though she's not exhaling fully. Patient denies any swelling to the legs or calf tenderness. - Related Data Home Medications Medication Instructions Recorded Confirmed Apixaban [Eliquis] 5 mg PO BID 03/10/22 03/29/22 Cholecalciferol [Vitamin D3 (25 50 mcg PO DAILY 03/10/22 03/29/22 Mcg = 1000 Iu)] Irbesartan [Avapro] 75 mg PO HS 03/10/22 03/29/22 Metoprolol Tartrate [Lopressor] 25 mg PO TID 03/10/22 03/29/22 Simvastatin [Zocor] 20 mg PO HS 03/10/22 03/29/22 Albuterol Sulfate Inhaler 1 - 2 puff IH Q4HR PRN 03/27/22 03/29/22 Cyclobenzaprine [Flexeril] 10 mg PO HS 03/27/22 03/29/22 Magnesium Oxide 400 mg PO 1400 03/27/22 03/29/22 Vitamin E [Vitamin E (1000 Iu = 1,000 unit PO 1400 03/27/22 03/29/22 450 MG)] Allergies Allergy/AdvReac Type Severity Reaction Status Date / Time aspirin Allergy hives Verified 04/22/22 14:48 metal Allergy blisters Uncoded 04/22/22 14:48 Review of Systems ROS Statement: Those systems with pertinent positive or pertinent negative responses have been documented in the HPI. ROS Other: All systems not noted in ROS Statement are negative. Past Medical History Past Medical History: Atrial Fibrillation, Cancer, COPD, Hypertension Additional Past Medical History / Comment(s): see Dr Muñoz H&P, breast cancer, occ SOB, recent elevated thryoid lab work, sore lower leg-slipped on truck running board. History of Any Multi-Drug Resistant Organisms: None Reported Past Surgical History: Breast Surgery, Heart Catheterization Additional Past Surgical History / Comment(s): milo masectomy, Past Anesthesia/Blood Transfusion Reactions: No Reported Reaction Past Psychological History: No Psychological Hx Reported Smoking Status: Former smoker Past Alcohol Use History: None Reported, Occasional Past Drug Use History: None Reported - Past Family History Father Family Medical History: Cancer General Exam - General Exam Comments Initial Comments: GENERAL: Patient is well-developed and well-nourished. Patient is nontoxic and well- hydrated and is in no acute distress. ENT: Neck is soft and supple. No significant lymphadenopathy is noted. Oropharynx is clear. Moist mucous membranes. Neck has full range of motion without eliciting any pain. EYES: The sclera were anicteric and conjunctiva were pink and moist. Extraocular movements were intact and pupils were equal round and reactive to light. Eyelids were unremarkable. PULMONARY: Unlabored respirations. Good breath sounds bilaterally. No audible rales rhonchi or wheezing was noted. CARDIOVASCULAR: Patient has an irregular rate at about 80 beats a minute ABDOMEN: Soft and nontender with normal bowel sounds. SKIN: Skin is clear with no lesions or rashes and otherwise unremarkable. NEUROLOGIC: Patient is alert and oriented x3. Cranial nerves II through XII are grossly int act. Motor and sensory are also intact. Normal speech, volume and content. Symmetrical smile. MUSCULOSKELETAL: Normal extremities with adequate strength and full range of motion. 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 Patient's EKG shows no ST segment elevation or depression I spoke with Dr. Muñoz about the patient he wanted some basic lab work and stated the lab work was relatively normal. Patient should be discharged home to follow-up as scheduled ablation Chest x-ray shows no acute abnormality. Patient was oxygenating 100% throughout her ED visit. - Lab Data Result diagrams: 04/22/22 15:33 04/22/22 15:33 Lab Results 04/22/22 04/22/22 04/22/22 Range/Units 15:33 15:33 15:33 WBC 7.1 (3.8-10.6) k/uL RBC 4.82 (3.80-5.40) m/uL Hgb 14.3 (11.4-16.0) gm/dL Hct 44.4 (34.0-46.0) % MCV 92.0 (80.0-100.0) fL MCH 29.7 (25.0-35.0) pg MCHC 32.3 (31.0-37.0) g/dL RDW 12.7 (11.5-15.5) % Plt Count 245 (150-450) k/uL MPV 8.7 Neutrophils % 69 % Lymphocytes % 23 % Monocytes % 5 % Eosinophils % 1 % Basophils % 1 % Neutrophils # 4.9 (1.3-7.7) k/uL Lymphocytes # 1.6 (1.0-4.8) k/uL Monocytes # 0.3 (0-1.0) k/uL Eosinophils # 0.1 (0-0.7) k/uL Basophils # 0.1 (0-0.2) k/uL Sodium 134 L (137-145) mmol/L Potassium 4.1 (3.5-5.1) mmol/L Chloride 101 (98-107) mmol/L Carbon Dioxide 22 (22-30) mmol/L Anion Gap 11 mmol/L BUN 16 (7-17) mg/dL Creatinine 0.69 (0.52-1.04) mg/dL Est GFR (CKD-EPI)AfAm >90 (>60 ml/min/1.73 sqM) Est GFR (CKD-EPI)NonAf >90 (>60 ml/min/1.73 sqM) Glucose 94 (74-99) mg/dL Calcium 10.0 (8.4-10.2) mg/dL Magnesium 2.1 (1.6-2.3) mg/dL Total Bilirubin 1.0 (0.2-1.3) mg/dL AST 24 (14-36) U/L ALT 39 H (4-34) U/L Alkaline Phosphatase 69 (38-126) U/L Troponin I <0.012 (0.000-0.034) ng/mL Total Protein 7.9 (6.3-8.2) g/dL Albumin 4.9 (3.5-5.0) g/dL Disposition Clinical Impression: Atrial flutter Disposition: HOME SELF-CARE Condition: Good Instructions (If sedation given, give patient instructions): Atrial Flutter (ED) Is patient prescribed a controlled substance at d/c from ED?: No Referrals: Birdie Jones MD [Primary Care Provider] - 1-2 days Time of Disposition: 16:05
[2022-04-22 15:41] LABS: Basophils # (A) 0.1 k/uL (0-0.2); Basophils % (A) 1 %; Eosinophils # (A) 0.1 k/uL (0-0.7); Eosinophils % (A) 1 %; HCT 44.4 % (34.0-46.0); HGB 14.3 gm/dL (11.4-16.0); Lymphocytes # (A) 1.6 k/uL (1.0-4.8); Lymphocytes % (A) 23 %; MCH 29.7 pg (25.0-35.0); MCHC 32.3 g/dL (31.0-37.0); Mean Platelet Volume 8.7; Monocytes # (A) 0.3 k/uL (0-1.0); Monocytes % (A) 5 %; Neutrophils # (A) 4.9 k/uL (1.3-7.7); Neutrophils % (A) 69 %; Platelet Count 245 k/uL (150-450); RBC 4.82 m/uL (3.80-5.40); RDW 12.7 % (11.5-15.5); WBC 7.1 k/uL (3.8-10.6)
[2022-04-22 15:51] LABS: ALT 39 U/L (4-34); AST 24 U/L (14-36); African American GFR (CKD) >90 (>60 ml/min/1.73 sqM); Albumin 4.9 g/dL (3.5-5.0); Alkaline Phosphatase 69 U/L (38-126); Anion Gap 11 mmol/L; Blood Urea Nitrogen 16 mg/dL (7-17); Carbon Dioxide 22 mmol/L (22-30); Chloride 101 mmol/L (98-107); Glucose 94 mg/dL (74-99); Magnesium 2.1 mg/dL (1.6-2.3); Non-African American GFR(CKD) >90 (>60 ml/min/1.73 sqM); Potassium 4.1 mmol/L (3.5-5.1); Sodium 134 mmol/L (137-145); Total Protein 7.9 g/dL (6.3-8.2)
--- NOTE | 2022-04-22 15:59 | XR ---
EXAMINATION TYPE: XR chest 2V DATE OF EXAM: 04/22/2022 COMPARISON: 03/10/2022 HISTORY: Dysrhythmia TECHNIQUE: 2 views FINDINGS: There is no heart failure nor confluent pneumonic infiltrate. Costophrenic angles are clear . There are no hilar masses. IMPRESSION: No active cardiopulmonary disease. There is clearing of the mild interstitial edema alexander red to old exam.
[2022-04-22 16:19] VITALS: PULSE 87; RESP 16
== END 2022-04-22 16:19 | disposition home or self-care (01) ==
LOC: EC 14:41
DX: I48.92 Unspecified atrial flutter (principal); J44.9 Chronic obstructive pulmonary disease, unspecified; I10 Essential (primary) hypertension; I48.91 Unspecified atrial fibrillation; Z79.82 Long term (current) use of aspirin; Z91.09 Other allergy status, other than to drugs and biological substances; Z87.891 Personal history of nicotine dependence; Z79.899 Other long term (current) drug therapy; Z79.01 Long term (current) use of anticoagulants
CPT/HCPCS: 36415; 93005; 83880; 80053; 83735; 84484; 85025; 71046; 99285; 96374; J2060

== ENCOUNTER 2022-05-01 06:12 | Day surgery (SDC) | payer BC, MEDICARE ==
[2022-04-27 18:23] VITALS: BMI 28.1
[~2022-05-01 06:12] MED LIST: SODIUM CHLORIDE 0.9% 1,000 ML IV SCH
[2022-05-01] MEDS ORDERED: SODIUM CHLORIDE 0.9% 500 ML 500 ML IV ONE (06:37)
[2022-05-01 07:02] VITALS: RESP 16; TEMP 97.7
[2022-05-01] MEDS ORDERED: PROPOFOL 10 MG/ML 20 ML VIAL IV ONE (07:28)
--- NOTE | 2022-05-01 14:00 | PCN ---
PROCEDURE NOTE DATE OF SERVICE: 05/01/2022. INDICATION: Persistent atrial fibrillation status post atrial fibrillation ablation with recurrent atrial fibrillation and flutter. CLINICAL INFORMATION: Mrs. Ch is a 67-year-old lady with a nonischemic cardiomyopathy, recurrent persistent atrial fibrillation for which she had an ablation and then she had recurrence of atrial fib followed by atrial flutter. She was brought in for the procedure after adequate anticoagulation on a combination of metoprolol and amiodarone. Risks, benefits, options, rationale were explained. PROCEDURE NOTE: Under the influence of [id number] intravenous anesthetic agent with the attendance of the anesthesiologist, a single shock of 50 joules was delivered for atrial flutter with anterior and posterior patches. Patient converted to atrial fibrillation with a rate of 78 beats per minute and a second shock of 200 joules was delivered with anterior and posterior patches. She converted to sinus rhythm, remained hemodynamically stable. This was a successful electrical cardioversion. Patient is hemodynamically stable and neurologically intact. Results were discussed with the patient and family. She will be discharged on amiodarone 200 mg 1 tab daily and reduced dose of metoprolol, metoprolol will be reduced to 25 mg 3 times a day. I will see her in the office within a week. MMODL / IJN: [id number] /
[2022-05-01 15:12] VITALS: BP 131/82; PULSE 50
== END 2022-05-01 10:17 | disposition home or self-care (01) ==
LOC: CATHCVL 06:12
PROVIDERS: ATTEND Internal Medicine Interventional Cardiology
DX: I48.0 Paroxysmal atrial fibrillation (principal); I48.19 Other persistent atrial fibrillation; I48.92 Unspecified atrial flutter; I42.8 Other cardiomyopathies; R00.1 Bradycardia, unspecified; Z20.822 Contact with and (suspected) exposure to COVID-19; I10 Essential (primary) hypertension; J44.9 Chronic obstructive pulmonary disease, unspecified; Z87.891 Personal history of nicotine dependence; Z79.01 Long term (current) use of anticoagulants; Z79.899 Other long term (current) drug therapy; E78.5 Hyperlipidemia, unspecified; Z88.6 Allergy status to analgesic agent; Z91.09 Other allergy status, other than to drugs and biological substances; Z80.9 Family history of malignant neoplasm, unspecified; Z82.49 Family history of ischemic heart disease and other diseases of the circulatory system
CPT/HCPCS: 92960; 87635; J2704

== ENCOUNTER 2022-05-08 07:57 | Observation (INO) | payer BC, MEDICARE ==
--- NOTE | 2022-05-08 08:53 | ED ---
General Adult HPI - General Chief complaint: Chest Pain Stated complaint: A-fib Time Seen by Provider: 05/08/22 08:03 Source: patient, family, RN notes reviewed, old records reviewed Mode of arrival: wheelchair Limitations: no limitations - History of Present Illness Initial comments: 67-year-old female presents for evaluation of chest tightness, fluttering feeling and lightheadedness. Patient states this morning she woke it did not feel well she was lightheaded, with nausea. She states she was diaphoretic. She's been dealing with atrial flutter and atrial fibrillation over the past several months. She's had an ablation, cardioversion without success. Patient states she had a heart cath several years ago. She does report some mild associated chest tightness. No fever. - Related Data Home Medications Medication Instructions Recorded Confirmed Apixaban [Eliquis] 5 mg PO BID 03/10/22 05/08/22 Cholecalciferol [Vitamin D3 (25 50 mcg PO DAILY 03/10/22 05/08/22 Mcg = 1000 Iu)] Metoprolol Tartrate [Lopressor] 50 mg PO BID 03/10/22 05/08/22 Simvastatin [Zocor] 20 mg PO HS 03/10/22 05/08/22 Amiodarone HCl [Pacerone] 200 mg PO DAILY 04/27/22 05/08/22 Albuterol Inhaler [Ventolin Hfa 1 - 2 puff INHALATION RT-Q6H PRN 05/08/22 05/08/22 Inhaler] Cyclobenzaprine [Flexeril] 10 mg PO HS PRN 05/08/22 05/08/22 Losartan Potassium [Cozaar] 100 mg PO HS 05/08/22 05/08/22 Sertraline [Zoloft] 100 mg PO DAILY 05/08/22 05/08/22 Allergies Allergy/AdvReac Type Severity Reaction Status Date / Time aspirin Allergy hives Verified 05/08/22 09:07 metal Allergy blisters Uncoded 05/08/22 08:02 Review of Systems ROS Statement: Those systems with pertinent positive or pertinent negative responses have been documented in the HPI. ROS Other: All systems not noted in ROS Statement are negative. Past Medical History Past Medical History: Atrial Fibrillation, Cancer, COPD, Hypertension Additional Past Medical History / Comment(s): see Dr Muñoz H&P, breast cancer- no radiation or chemo 2009, occ SOB, recent elevated thryoid lab work History of Any Multi-Drug Resistant Organisms: None Reported Past Surgical History: Breast Surgery, Cardiac Ablation, Heart Catheterization Additional Past Surgical History / Comment(s): milo masectomy, Cardioversio Past Anesthesia/Blood Transfusion Reactions: No Reported Reaction Past Psychological History: No Psychological Hx Reported Smoking Status: Former smoker - Past Family History Father Family Medical History: Cancer Additional Family Medical History / Comment(s): heart problems General Exam Limitations: no limitations General appearance: alert, in no apparent distress Head exam: Present: atraumatic, normocephalic Eye exam: Present: normal appearance, PERRL ENT exam: Present: normal exam Neck exam: Present: normal inspection. Absent: tenderness, meningismus Respiratory exam: Present: normal lung sounds bilaterally. Absent: respiratory distress, wheezes Cardiovascular Exam: Present: regular rate, irregular rhythm GI/Abdominal exam: Present: soft. Absent: distended, tenderness, guarding, rebound Extremities exam: Present: normal inspection, normal capillary refill. Absent: pedal edema Neurological exam: Present: alert, oriented X3, CN II-XII intact. Absent: motor sensory deficit Psychiatric exam: Present: normal affect, normal mood Skin exam: Present: warm, dry, intact. Absent: cyanosis, diaphoretic Course Vital Signs 05/08/22 07:57 Temperature 97.4 F L Pulse Rate 100 Respiratory 18 Rate Blood Pressure 159/89 O2 Sat by Pulse 99 Oximetry EKG Findings - EKG Comments: EKG Findings:: Atrial flutter with variable AV block rate of 89, QRS duration 88, QTC [address] segment elevation. Medical Decision Making - Medical Decision Making 61 sexual female presenting with palpitations, chest pain, lightheadedness. Patient has some associated nausea and diaphoresis. Patient is known to cardiology service. She's had ablation, cardioversion. She is in atrial flutter with normal rate, stable blood pressure. Her laboratory testing is unremarkable. Chest x-ray is clear. I did discuss case with Dr. Muñoz, who is familiar with the patient. He would like to evaluate the patient for possible intervention. Patient will be admitted to Dr. Deng who is aware. - Lab Data Result diagrams: 05/08/22 08:41 08/02/22 08:41 Lab Results 05/08/22 05/08/22 05/08/22 Range/Units 08:41 08:41 08:41 WBC 6.7 (3.8-10.6) k/uL RBC 4.93 (3.80-5.40) m/uL Hgb 15.1 (11.4-16.0) gm/dL Hct 45.0 (34.0-46.0) % MCV 91.3 (80.0-100.0) fL MCH 30.7 (25.0-35.0) pg MCHC 33.6 (31.0-37.0) g/dL RDW 13.1 (11.5-15.5) % Plt Count 241 (150-450) k/uL MPV 9.2 Neutrophils % 80 % Lymphocytes % 14 % Monocytes % 4 % Eosinophils % 1 % Basophils % 1 % Neutrophils # 5.4 (1.3-7.7) k/uL Lymphocytes # 0.9 L (1.0-4.8) k/uL Monocytes # 0.2 (0-1.0) k/uL Eosinophils # 0.0 (0-0.7) k/uL Basophils # 0.1 (0-0.2) k/uL PT 10.5 (9.0-12.0) sec INR 1.0 (<1.2) APTT 24.0 (22.0-30.0) sec Sodium 134 L (137-145) mmol/L Potassium 3.8 (3.5-5.1) mmol/L Chloride 102 (98-107) mmol/L Carbon Dioxide 21 L (22-30) mmol/L Anion Gap 11 mmol/L BUN 13 (7-17) mg/dL Creatinine 0.68 (0.52-1.04) mg/dL Est GFR (CKD-EPI)AfAm >90 (>60 ml/min/1.73 sqM) Est GFR (CKD-EPI)NonAf >90 (>60 ml/min/1.73 sqM) Glucose 140 H (74-99) mg/dL Calcium 9.8 (8.4-10.2) mg/dL Magnesium 1.8 (1.6-2.3) mg/dL Total Bilirubin 0.9 (0.2-1.3) mg/dL AST 25 (14-36) U/L ALT 35 H (4-34) U/L Alkaline Phosphatase 58 (38-126) U/L Troponin I (0.000-0.034) ng/mL Total Protein 7.8 (6.3-8.2) g/dL Albumin 4.9 (3.5-5.0) g/dL 05/08/22 Range/Units 08:41 WBC (3.8-10.6) k/uL RBC (3.80-5.40) m/uL Hgb (11.4-16.0) gm/dL Hct (34.0-46.0) % MCV (80.0-100.0) fL MCH (25.0-35.0) pg MCHC (31.0-37.0) g/dL RDW (11.5-15.5) % Plt Count (150-450) k/uL MPV Neutrophils % % Lymphocytes % % Monocytes % % Eosinophils % % Basophils % % Neutrophils # (1.3-7.7) k/uL Lymphocytes # (1.0-4.8) k/uL Monocytes # (0-1.0) k/uL Eosinophils # (0-0.7) k/uL Basophils # (0-0.2) k/uL PT (9.0-12.0) sec INR (<1.2) APTT (22.0-30.0) sec Sodium (137-145) mmol/L Potassium (3.5-5.1) mmol/L Chloride (98-107) mmol/L Carbon Dioxide (22-30) mmol/L Anion Gap mmol/L BUN (7-17) mg/dL Creatinine (0.52-1.04) mg/dL Est GFR (CKD-EPI)AfAm (>60 ml/min/1.73 sqM) Est GFR (CKD-EPI)NonAf (>60 ml/min/1.73 sqM) Glucose (74-99) mg/dL Calcium (8.4-10.2) mg/dL Magnesium (1.6-2.3) mg/dL Total Bilirubin (0.2-1.3) mg/dL AST (14-36) U/L ALT (4-34) U/L Alkaline Phosphatase (38-126) U/L Troponin I <0.012 (0.000-0.034) ng/mL Total Protein (6.3-8.2) g/dL Albumin (3.5-5.0) g/dL Disposition Clinical Impression: Atrial flutter, Chest pain Disposition: ADMITTED IP TO THIS HOSP Condition: Stable Is patient prescribed a controlled substance at d/c from ED?: No Referrals: Birdie Jones MD [Primary Care Provider] - 1-2 days Time of Disposition: 10:00
--- NOTE | 2022-05-08 09:05 | XR ---
EXAMINATION TYPE: XR chest 2V DATE OF EXAM: 05/08/2022 COMPARISON: 04/22/2022 INDICATION: Chest pain TECHNIQUE: Frontal and lateral views of the chest are obtained. FINDINGS: The heart size is normal. The pulmonary vasculature is normal. The lungs are clear. IMPRESSION: 1. No acute pulmonary process.
[2022-05-08 09:09] LABS: Basophils # (A) 0.1 k/uL (0-0.2); Basophils % (A) 1 %; Eosinophils % (A) 1 %; HGB 15.1 gm/dL (11.4-16.0); Lymphocytes # (A) 0.9 k/uL (1.0-4.8); Lymphocytes % (A) 14 %; MCH 30.7 pg (25.0-35.0); MCHC 33.6 g/dL (31.0-37.0); MCV 91.3 fL (80.0-100.0); Mean Platelet Volume 9.2; Monocytes # (A) 0.2 k/uL (0-1.0); Monocytes % (A) 4 %; Neutrophils # (A) 5.4 k/uL (1.3-7.7); Neutrophils % (A) 80 %; Platelet Count 241 k/uL (150-450); RBC 4.93 m/uL (3.80-5.40); RDW 13.1 % (11.5-15.5); WBC 6.7 k/uL (3.8-10.6)
[2022-05-08 09:19] LABS: Prothrombin Time 10.5 sec (9.0-12.0)
[2022-05-08 09:27] LABS: ALT 35 U/L (4-34); AST 25 U/L (14-36); African American GFR (CKD) >90 (>60 ml/min/1.73 sqM); Albumin 4.9 g/dL (3.5-5.0); Alkaline Phosphatase 58 U/L (38-126); Anion Gap 11 mmol/L; Blood Urea Nitrogen 13 mg/dL (7-17); Calcium 9.8 mg/dL (8.4-10.2); Carbon Dioxide 21 mmol/L (22-30); Chloride 102 mmol/L (98-107); Glucose 140 mg/dL (74-99); Magnesium 1.8 mg/dL (1.6-2.3); Non-African American GFR(CKD) >90 (>60 ml/min/1.73 sqM); Potassium 3.8 mmol/L (3.5-5.1); Sodium 134 mmol/L (137-145); Total Bilirubin 0.9 mg/dL (0.2-1.3); Total Protein 7.8 g/dL (6.3-8.2)
[2022-05-08] MEDS ORDERED: NALOXONE 0.4 MG/ML 1 ML VIAL IV PRN (09:51)
[2022-05-08] MEDS: SODIUM CHLORIDE 0.9% 1,000 ML IV SCH ×2 (10:00→23:35)
[2022-05-08] MEDS ORDERED: CYCLOBENZAPRINE 10 MG TAB PO PRN (11:17)
[2022-05-08] MEDS: SERTRALINE 100 MG TAB PO SCH (11:51)
[2022-05-08] MEDS: LOSARTAN 50 MG TAB PO SCH ×2 (12:19→15:43)
[2022-05-08] MEDS ORDERED: ONDANSETRON 4 MG/2 ML VIAL IVP PRN (15:28)
[2022-05-08] MEDS ORDERED: ACETAMINOPHEN TAB 325 MG TAB PO PRN (15:28)
[2022-05-08] MEDS ORDERED: CALCIUM CARBONATE 500 MG CHEWABLE PO PRN (15:28)
--- NOTE | 2022-05-08 15:30 | P.HPIM ---
History of Present Illness H&P Date: 05/08/22 Chief Complaint: Chest tightness Hospital course This is a pleasant 66 years old female with past medical history of Atrial Fibrillation/flutter on eliquis, breast Cancer, Hypertension. sees Dr. SHABANA Rogers her loan adviser. In the last few weeks she has seen her loan adviser and medications are being adjusted. She had a DC cardioversion in March of this year. Did well for about a week then symptoms came back. Medications have been changed around.. About a week ago patient underwent cardioversion again. 4 days ago patient back into atrial flutter fibrillation. Patient did see her loan adviser yesterday. Was feeling fair. This morning patient developed chest tightness. Became short of breath. That she will pass out. Tired rundown. Patient has not been sleeping well. Patient heart rate was controlled in the ER. Review of systems: GEN.: Tired EYES: None HEENT: None NECK: None RESPIRATORY: As above CARDIOVASCULAR: [As above GASTROINTESTINAL: None GENITOURINARY: None MUSCULOSKELETAL: None LYMPHATICS: None HEMATOLOGICAL: None PSYCHIATRY: Anxious NEUROLOGICAL: [Pus leaving well Past medical history to include: Atrial fibrillation fibrillation, COPD, hypertension, breast cancer, Social history: Alcohol occasionally. Stopped smoking 6 years ago. Smoked on and off since a teenager. Family history: Cancer, heart problems Physical examination: VITAL SIGNS: 97.4, 100, 18, 138/93, 99% room air GENERAL: BMI 29, reclining but awake, tired. EYES: Pupils equal. Conjunctiva normal. HEENT: External appearance of nose and ears normal, oral cavity grossly normal. NECK: JVD not raised; masses not palpable. HEART: Heart sounds irregular; no edema. LUNGS: Respiratory rate normal; clear to auscultation. ABDOMEN: Soft, nontender, liver spleen not palpable, no masses palpable. PSYCH: Alert and oriented x3; mood and affect anxiousl. MUSCULOSKELETAL:No Clubbing/cyanosis;muscles-grossly intact, evidence of OA NEUROLOGICAL: Cranial nerves grossly intact; no facial asymmetry, power and sensation grossly intact. LYMPHATICS: No lymph nodes palpable in the axilla and neck INVESTIGATIONS, reviewed in the clinical context: White count 6.7 hemoglobin 15.1 platelets 241 potassium 3.8 creatinine 0.68 magnesium 1.8 Troponin I 3 negative EKG tracing personally reviewed by me-atrial flutter rate 89 Chest x-ray film personally reviewed by me-hyperinflation Previous studies: 2-D echocardiogram [03/12/2022] year 55-60%. Moderate to severe mitral regurgitation. Tricuspid regurgitation. Assessment and plan: -Recurrent atrial fibrillation flutter. Patient was cardioverted in March of this year and May 01. Back in atrial flutter. Symptomatic. Started on amiodarone. Dr. Jacky Muñoz from EP consulted. Continue eliquis. -Hyperlipidemia Lipitor 10 mg daily at bedtime -Moderate to severe mitral regurgitation, tricuspid regurgitation Follow with cardiology -Essential hypertension Cozaar. Lopressor. -Situational anxiety Ativan when necessary -Insomnia due to medical conditions Ambien 2.5 mg daily at bedtime Patient started on amiodarone. Home medications resumed. Lopressor per cardiology. Cardiology consulted. Telemetry. Add Ambien. Continue eliquis. Discussed with the patient and at the bedside. Past Medical History Past Medical History: Atrial Fibrillation, Cancer, COPD, Hypertension Additional Past Medical History / Comment(s): see Dr Muñoz H&P, breast cancer- no radiation or chemo 2008, occ SOB, recent elevated thryoid lab work History of Any Multi-Drug Resistant Organisms: None Reported Past Surgical History: Breast Surgery, Cardiac Ablation, Heart Catheterization Additional Past Surgical History / Comment(s): milo masectomy, Cardioversio Past Anesthesia/Blood Transfusion Reactions: No Reported Reaction Past Psychological History: No Psychological Hx Reported Smoking Status: Former smoker - Past Family History Father Family Medical History: Cancer Additional Family Medical History / Comment(s): heart problems Medications and Allergies Home Medications Medication Instructions Recorded Confirmed Type Apixaban [Eliquis] 5 mg PO BID 03/10/22 05/08/22 History Cholecalciferol [Vitamin D3 (25 50 mcg PO DAILY 03/10/22 05/08/22 History Mcg = 1000 Iu)] Metoprolol Tartrate [Lopressor] 50 mg PO BID 03/10/22 05/08/22 History Simvastatin [Zocor] 20 mg PO HS 03/10/22 05/08/22 History Amiodarone HCl [Pacerone] 200 mg PO DAILY 04/27/22 05/08/22 History Albuterol Inhaler [Ventolin Hfa 1 - 2 puff INHALATION RT-Q6H PRN 05/08/22 05/08/22 History Inhaler] Cyclobenzaprine [Flexeril] 10 mg PO HS PRN 05/08/22 05/08/22 History Losartan Potassium [Cozaar] 100 mg PO HS 05/08/22 05/08/22 History Sertraline [Zoloft] 100 mg PO DAILY 05/08/22 05/08/22 History Allergies Allergy/AdvReac Type Severity Reaction Status Date / Time aspirin Allergy hives Verified 05/08/22 09:07 metal Allergy blisters Uncoded 05/08/22 08:02 Physical Exam Vitals: Vital Signs Temp Pulse Resp BP Pulse Ox 05/08/22 09:40 74 18 152/106 96 05/08/22 09:10 80 18 151/112 96 05/08/22 08:40 18 152/118 05/08/22 08:20 18 138/93 95 05/08/22 07:57 97.4 F L 100 18 159/89 99 Intake and Output 05/07/22 05/08/22 05/08/22 22:59 06:59 14:59 Other: Weight 83.915 kg Results CBC & Chem 7: 05/08/22 08:41 05/08/22 08:41 Labs: Abnormal Lab Results - Last 24 Hours (Table) 05/08/22 05/08/22 Range/Units 08:41 08:41 Lymphocytes # 0.9 L (1.0-4.8) k/uL Sodium 134 L (137-145) mmol/L Carbon Dioxide 21 L (22-30) mmol/L Glucose 140 H (74-99) mg/dL ALT 35 H (4-34) U/L
[2022-05-08] MEDS: LACTULOSE 20 GM/30 ML CUP PO PRN (16:11)
[2022-05-08] MEDS: ZOLPIDEM 5 MG TAB PO SCH (20:16)
[2022-05-08] MEDS: ATORVASTATIN 10 MG TAB PO SCH (20:16)
[2022-05-08] MEDS: APIXABAN 5 MG TAB PO SCH (20:16)
[2022-05-08] MEDS ORDERED: LOSARTAN 50 MG TAB PO SCH (21:00)
[2022-05-09] MEDS: LORazepam 0.5 MG TAB PO PRN ×2 (03:54→17:48)
[2022-05-09] MEDS: CHOLECALCIFEROL 25 MCG (1000 IU) TABLET PO SCH (08:08)
[2022-05-09] MEDS: SERTRALINE 100 MG TAB PO SCH (08:08)
[2022-05-09] MEDS: APIXABAN 5 MG TAB PO SCH ×2 (08:08→20:20)
[2022-05-09] MEDS: METOPROLOL TARTRATE 25 MG TAB PO SCH ×2 (08:34→20:21)
[2022-05-09] MEDS ORDERED: METOPROLOL TARTRATE 50 MG TAB PO SCH (09:00)
[2022-05-09] MEDS ORDERED: AMIODARONE 200 MG TAB PO SCH (09:00)
--- NOTE | 2022-05-09 10:04 | P.CRDCN ---
History of Present Illness History of present illness: HISTORY OF PRESENTING ILLNESS This is a pleasant 67-year-old female past medical history significant for persistent atrial fibrillation on Eliquis, History of cardioversion in 03/2022 and A fib ablation on 03/29/2022, atrial flutter s/p cardioversion most recently on 05/01/2022, hypertension, dyslipidemia . She follows in the office with Dr. Rogers. We have been asked to see in consultation for atrial flutter and chest pain. Patient is an examined in the ER, she presents to the ER with an episode this morning of nausea, "Feeling warm", chest pressure, and shortness of breath. She states she underwent a sleep study at home last night. She woke up around 4AM "not feeling well". She was nauseous, no emesis. She went back to bed and woke up with similar nausea, she ate breakfast, took her meds with no improvement. She endorses some midsternal chest pressure, non-radiating, non-exertional. She did feel anxious, had some shortness of breath. She endorsed the top of her right foot felt numb, which has resolved since admission. She denies any palpitaitons, lightheadedness, dizziness, syncope or near syncope, fever, cough, chills, headache, focal weakness, change in vision or speech, abdominal pain, emesis, diarrhea. She states she came to ER for further evaluation. She followed up in the office Yesterday 05/07. She was in atrial flutter with HR 62. She was having some symptoms of shortness of breath and anxious as well. She was scheduled with a follow up appointment to be evaluated by Dr. Muñoz for possible repeat ablation. She has been compliant with her medications. She was hypertensive on admission BP 151/112. Heart rates have been controlled. Chest discomfort has resolved. DIAGNOSTICS * EKG reveals atrial flutter, heart rate 89 * Telemetry tracings indicate atrial flutter with controlled ventricular rates * Chest xray no acute cardio pulmonary process * Laboratory reviewed, troponin negative, sodium 134, potassium 3.8, BUN 13, serum current 2.6, magnesium 1.8, CBC unremarkable. * Current home cardiac medications include simvastatin 20 mg nightly, metoprolol titrate 50 mg twice a day, losartan 100 mg nightly, Eliquis 5 mg twice a day, amiodarone 200 mg daily * Echocardiogram 03/2022 revealed an EF of 5560 percent, moderate to severe mitral regurgitation, mild to moderate tricuspid regurgitation REVIEW OF SYSTEMS At the time of my exam: CONSTITUTIONAL: Denies fever or chills. CARDIOVASCULAR: Denies chest pain, shortness of breath, orthopnea, PND or palpitations. RESPIRATORY: Denies cough. GASTROINTESTINAL: Denies abdominal pain, diarrhea, constipation, nausea or vomiting. MUSCULOSKELETAL: Denies myalgias. NEUROLOGIC: Denies numbness, tingling, headacbe or weakness. ENDOCRINE: Denies fatigue, weight change, polydipsia or polyurina. GENITOURINARY: Denies burning, hematuria or urgency with micturation. HEMATOLOGIC: Denies history of anemia or bleeding. PHYSICAL EXAMINATION Blood pressure 137/95, heart rate 88, afebrile, oxygen saturation is 96% on room air CONSTITUTIONAL: No apparent distress. HEENT: Head is normocephalic. Pupils are equal, round. Sclerae anicteric. Mucous membranes of the mouth are moist. No JVD. No carotid bruit. CHEST EXAMINATION: Lungs are clear to auscultation. No chest wall tenderness is noted on palpation or with deep breathing. HEART EXAMINATION: Irregular rate and rhythm. S1, S2 heard. Systolic murmur at apex. No gallops or rub. ABDOMEN: Soft, nontender. Positive bowel sounds. EXTREMITIES: 2+ peripheral pulses, no lower extremity edema and no calf tenderness. NEUROLOGIC EXAMINATION: Patient is awake, alert and oriented x3. ASSESSMENT Chest pain, atypical, likely related to hypertension, acute coronary syndrome has been ruled out Symptoms of shortness of breath Atypical atrial flutter, rates controlled Persistent atrial fibrillation on Eliquis History of cardioversion in 03/2022, and recently 05/01/2022 History of Atrial fibrillation ablation on 03/29/2022 Hypertension Dyslipidemia PLAN Patient's symptoms appear to be related to uncontrolled hypertension Add chlorathalidone 25mg daily Stop Amiodarone at this time Increase metoprolol to 75 mg BID Continue losartan anticoagulation with Eliquis Likely discharge in 24 hours Patient to follow up outpatient with Dr. Muñoz patient with appointment on 06/08/[address] Rogers, her primary traveling clerk. Nurse practitioner note has been reviewed by physician. Signing provider agrees with the documented findings, assessment, and plan of care. Past Medical History Past Medical History: Atrial Fibrillation, Cancer, COPD, Hypertension Additional Past Medical History / Comment(s): see Dr Muñoz H&P, breast cancer- no radiation or chemo 2009, occ SOB, recent elevated thryoid lab work History of Any Multi-Drug Resistant Organisms: None Reported Past Surgical History: Breast Surgery, Cardiac Ablation, Heart Catheterization Additional Past Surgical History / Comment(s): milo masectomy, Cardioversio Past Anesthesia/Blood Transfusion Reactions: No Reported Reaction Past Psychological History: No Psychological Hx Reported Smoking Status: Former smoker - Past Family History Father Family Medical History: Cancer Additional Family Medical History / Comment(s): heart problems Mother Family Medical History: Diabetes Mellitus Medications and Allergies Home Medications Medication Instructions Recorded Confirmed Type Apixaban [Eliquis] 5 mg PO BID 03/10/22 05/08/22 History Cholecalciferol [Vitamin D3 (25 50 mcg PO DAILY 03/10/22 05/08/22 History Mcg = 1000 Iu)] Metoprolol Tartrate [Lopressor] 50 mg PO BID 03/10/22 05/08/22 History Simvastatin [Zocor] 20 mg PO HS 03/10/22 05/08/22 History Amiodarone HCl [Pacerone] 200 mg PO DAILY 04/27/22 05/08/22 History Albuterol Inhaler [Ventolin Hfa 1 - 2 puff INHALATION RT-Q6H PRN 05/08/22 05/08/22 History Inhaler] Cyclobenzaprine [Flexeril] 10 mg PO HS PRN 05/08/22 05/08/22 History Losartan Potassium [Cozaar] 100 mg PO HS 05/08/22 05/08/22 History Sertraline [Zoloft] 100 mg PO DAILY 05/08/22 05/08/22 History Allergies Allergy/AdvReac Type Severity Reaction Status Date / Time aspirin Allergy hives Verified 05/08/22 09:07 metal Allergy blisters Uncoded 05/08/22 08:02 Physical Exam Vitals: Vital Signs Temp Pulse Resp BP Pulse Ox 05/08/22 11:30 80 18 140/107 95 05/08/22 10:50 81 18 145/110 96 05/08/22 10:30 79 18 150/105 96 05/08/22 09:40 74 18 152/106 96 05/08/22 09:10 80 18 151/112 96 05/08/22 08:40 18 152/118 05/08/22 08:20 18 138/93 95 05/08/22 07:57 97.4 F L 100 18 159/89 99 Intake and Output 05/07/22 05/08/22 05/08/22 22:59 06:59 14:59 Other: Weight 83.915 kg Results 05/08/22 08:41 05/08/22 08:41 Cardiac Enzymes 05/08/22 05/08/22 05/08/22 Range/Units 08:41 08:41 11:36 AST 25 (14-36) U/L Troponin I <0.012 <0.012 (0.000-0.034) ng/mL Coagulation 05/08/22 Range/Units 08:41 PT 10.5 (9.0-12.0) sec APTT 24.0 (22.0-30.0) sec CBC 05/08/22 Range/Units 08:41 WBC 6.7 (3.8-10.6) k/uL RBC 4.93 (3.80-5.40) m/uL Hgb 15.1 (11.4-16.0) gm/dL Hct 45.0 (34.0-46.0) % Plt Count 241 (150-450) k/uL Comprehensive Metabolic Panel 05/08/22 Range/Units 08:41 Sodium 134 L (137-145) mmol/L Potassium 3.8 (3.5-5.1) mmol/L Chloride 102 (98-107) mmol/L Carbon Dioxide 21 L (22-30) mmol/L BUN 13 (7-17) mg/dL Creatinine 0.68 (0.52-1.04) mg/dL Glucose 140 H (74-99) mg/dL Calcium 9.8 (8.4-10.2) mg/dL AST 25 (14-36) U/L ALT 35 H (4-34) U/L Alkaline Phosphatase 58 (38-126) U/L Total Protein 7.8 (6.3-8.2) g/dL Albumin 4.9 (3.5-5.0) g/dL Current Medications Generic Name Dose Route Start Last Admin Trade Name Freq PRN Reason Stop Dose Admin Amiodarone HCl 200 mg 05/09/22 09:00 Amiodarone 200 Mg Tab PO DAILY [facility] Apixaban 5 mg 05/08/22 21:00 Apixaban 5 Mg Tab PO BID [facility] Protocol Atorvastatin Calcium 10 mg 05/08/22 21:00 Atorvastatin 10 Mg Tab PO HS [facility] Cholecalciferol 50 mcg 05/09/22 09:00 Cholecalciferol 25 Mcg (1000 Iu) Tablet PO DAILY [facility] Cyclobenzaprine HCl 10 mg 05/08/22 11:17 Cyclobenzaprine 10 Mg Tab PO HS PRN Spasms Sodium Chloride 1,000 mls @ 75 mls/hr 05/08/22 10:00 05/08/22 10:00 Saline 0.9% IV 75 mls/hr .[id number] [facility] Administration Losartan Potassium 100 mg 05/08/22 12:03 05/08/22 12:19 Losartan 50 Mg Tab PO Not Given HS [facility] Naloxone HCl 0.2 mg 05/08/22 09:51 Naloxone 0.4 Mg/Ml 1 Ml Vial IV Q2M PRN Opioid Reversal Sertraline HCl 100 mg 05/08/22 11:30 05/08/22 11:51 Sertraline 100 Mg Tab PO Not Given DAILY [facility] Intake and Output 05/07/22 05/08/22 05/08/22 22:59 06:59 14:59 Other: Weight 83.915 kg Patient Weight 05/09/22 06:59 Weight 83.915 kg 05/08/22 08:41 05/08/22 08:41
[2022-05-09] MEDS: CHLORTHALIDONE 25 MG TAB PO SCH (10:21)
[2022-05-09 10:51] VITALS: BMI 29.0
--- NOTE | 2022-05-09 11:33 | P.EPCON ---
Electrophysiology Consult - EP Consult Electrophysiology Consult: This is Dr. Muñoz dictating a consult on this patient The patient was interviewed and examined IMPRESSION / ASSESSMENT: Persistent atrial fibrillation with a very short cycle length of 180 ms This was not typical flutter Atrial fibrillation rates are controlled Severely enlarged right and left atria with severe cardio myopathy Chronic pericarditis on intracardiac echo, likely post viral Past history of regular alcohol use, recently has tried to discontinue alcohol consumption High blood pressures at home and high blood pressures here upon admission Normal renal function PLAN: Anticoagulation to continue Stop IV fluids Stop oral amiodarone since she has failed amiodarone with recent cardioversion Rate controlled with metoprolol succinate Since she has elevations in blood pressure and cardiomyopathy, consider ENTRESTO in place of losartan She has a very enlarged left atrium and I would not recommend further ablations at this point Maximize heart failure medications Complete abstinence from alcohol consumption Low salt diet HPI Patient came in complaining of chest tightness fluttering lightheadedness nauseous Her heart rate is 89 beats a minute, controlled, in A. fib I reviewed the EKG and this is not typical atrial flutter as stated in the ER note She stated that her blood pressure is high at home greater than 145/100 mmHg Here in the ER she was 159/89 mmHg Blood pressures have been elevated here ROS: No fever chills or rigors, no cough, phlegm or expectoration, no nausea, vomiting or diarrhea, no hematuria, dysuria, no musculoskeletal complaints, no strokes or seizures, no skin lesions. EXAMINATION: Irregular rhythm No JVD Walking around comfortably in the room Heart rates during atrial fibrillation well controlled Clear lungs no rhonchi no crackles REVIEW OF LABS, ECG & MEDICAL DATA Normal white count was 6.7 thousand, he was alone 15.1 Platelet count 241,000 Sodium 134, potassium 3.8 Normal renal function him a magnesium 1.8 3 normal troponins
--- NOTE | 2022-05-09 13:22 | P.PN ---
Progress Note - Text Progress Note Date: 05/09/22 Chief Complaint: Chest tightness Hospital course This is a pleasant 66 years old female with past medical history of Atrial Fibrillation/flutter on eliquis, breast Cancer, Hypertension. sees Dr. SHABANA Rogers her brushing operator. Patient's had had prior ablation In the last few weeks she has seen her brushing operator and medications are being adjusted. She had a DC cardioversion in March of this year. Did well for about a week then symptoms came back. Medications have been changed around.. About a week ago patient underwent cardioversion again. 4 days ago patient back into atrial flutter fibrillation. Patient did see her brushing operator yesterday. Was feeling fair. This morning patient developed chest tightness. Became short of breath. That she will pass out. Tired rundown. Patient has not been sleeping well. Patient heart rate was controlled in the ER. May 09: Atrial flutter fibrillation rate controlled. Feeling better. Seen by Dr. Jacky Muñoz. Amiodarone being discontinued as she failed treatment with the same. He is considering using Entresto. Patient and had questions about heart chambers and other questions. Explained in detail. She informs me Dr. Jacky Muñoz told her that patient not a good candidate for any repeat ablation Active Medications Acetaminophen (Acetaminophen Tab 325 Mg Tab) 650 mg PO Q6HR PRN PRN Reason: Mild Pain or Fever > 100.5 Last Admin: 05/08/22 20:16 Dose: 650 mg Apixaban (Apixaban 5 Mg Tab) 5 mg PO BID [facility]; Protocol Last Admin: 05/09/22 08:08 Dose: 5 mg Atorvastatin Calcium (Atorvastatin 10 Mg Tab) 10 mg PO HS [facility] Last Admin: 05/08/22 20:16 Dose: 10 mg Calcium Carbonate/Glycine (Calcium Carbonate 500 Mg Chewable) 1,000 mg PO Q4HR PRN PRN Reason: Dyspepsia Chlorthalidone (Chlorthalidone 25 Mg Tab) 25 mg PO DAILY [facility] Last Admin: 05/09/22 10:21 Dose: 25 mg Cholecalciferol (Cholecalciferol 25 Mcg (1000 Iu) Tablet) 50 mcg PO DAILY [facility] Last Admin: 05/09/22 08:08 Dose: 50 mcg Cyclobenzaprine HCl (Cyclobenzaprine 10 Mg Tab) 10 mg PO HS PRN PRN Reason: Spasms Lactulose (Lactulose 20 Gm/30 Ml Cup) 20 gm PO DAILY PRN PRN Reason: Constipation Last Admin: 05/08/22 16:11 Dose: 20 gm Lorazepam (Lorazepam 0.5 Mg Tab) 0.5 mg PO Q6HR PRN PRN Reason: Anxiety Last Admin: 05/09/22 03:54 Dose: 0.5 mg Losartan Potassium (Losartan 50 Mg Tab) 100 mg PO [facility] Last Admin: 05/08/22 15:43 Dose: 100 mg Metoprolol Tartrate (Metoprolol Tartrate 25 Mg Tab) 75 mg PO BID [facility] Last Admin: 05/09/22 08:34 Dose: 75 mg Naloxone HCl (Naloxone 0.4 Mg/Ml 1 Ml Vial) 0.2 mg IV Q2M PRN PRN Reason: Opioid Reversal Ondansetron HCl (Ondansetron 4 Mg/2 Ml Vial) 4 mg IVP Q8HR PRN PRN Reason: Nausea And Vomiting Sertraline HCl (Sertraline 100 Mg Tab) 100 mg PO DAILY [facility] Last Admin: 05/09/22 08:08 Dose: 100 mg Zolpidem Tartrate (Zolpidem 5 Mg Tab) 2.5 mg PO [facility] Last Admin: 05/08/22 20:16 Dose: 2.5 mg Past medical history to include: Atrial fibrillation fibrillation, COPD, hypertension, breast cancer, Social history: Alcohol occasionally. Stopped smoking 6 years ago. Smoked on and off since a teenager. Family history: Cancer, heart problems Physical examination: VITAL SIGNS: 98.3, 79, 18, 116.78, 96% room air GENERAL: Up in bed, comfortable EYES: Pupils equal. Conjunctiva normal. HEENT: External appearance of nose and ears normal, oral cavity grossly normal. NECK: JVD not raised; masses not palpable. HEART: Heart sounds irregular; no edema. LUNGS: Respiratory rate normal; clear to auscultation. ABDOMEN: Soft, nontender, liver spleen not palpable, no masses palpable. PSYCH: Alert and oriented x3; mood and affect anxiousl. MUSCULOSKELETAL:No Clubbing/cyanosis;muscles-grossly intact, evidence of OA INVESTIGATIONS, reviewed in the clinical context: White count 6.7 hemoglobin 15.1 platelets 241 potassium 3.8 creatinine 0.68 magnesium 1.8 Troponin I 3 negative EKG tracing personally reviewed by me-atrial flutter rate 89 Chest x-ray film personally reviewed by me-hyperinflation Previous studies: 2-D echocardiogram [03/12/2022] year 55-60%. Moderate to severe mitral regurgitation. Tricuspid regurgitation. Assessment and plan: -Recurrent atrial fibrillation/ flutter. Has had prior ablation and cardioversion May 01. Back in atrial flutter. Symptomatic. Amiodarone discontinued.. Dr. Jacky Muñoz from EP consulted. Lopressor, eliquis. -Hyperlipidemia Lipitor 10 mg daily at bedtime -Moderate to severe mitral regurgitation, tricuspid regurgitation Follow with cardiology -Essential hypertension Cozaar. Lopressor. -Situational anxiety Ativan when necessary -Insomnia due to medical conditions Ambien 2.5 mg daily at bedtime Amiodarone discontinued. Continue other medications. Increase activity. Cardiology is considering considering Entresto. Spoke to the patient and at length questions answered. Total time spent about 45 minutes with over 25 minutes of discussion
[2022-05-09 15:51] VITALS: RESP 16
[2022-05-09] MEDS: LOSARTAN 50 MG TAB PO SCH (18:05)
[2022-05-09] MEDS: ATORVASTATIN 10 MG TAB PO SCH (20:21)
[2022-05-09] MEDS: ZOLPIDEM 5 MG TAB PO SCH (20:21)
[2022-05-10] MEDS: LORazepam 0.5 MG TAB PO PRN ×2 (00:04→09:29)
[2022-05-10 08:15] VITALS: TEMP 97.7
[2022-05-10] MEDS: LACTULOSE 20 GM/30 ML CUP PO PRN (09:29)
[2022-05-10] MEDS: APIXABAN 5 MG TAB PO SCH (09:29)
[2022-05-10] MEDS: SERTRALINE 100 MG TAB PO SCH (09:30)
[2022-05-10] MEDS: CHOLECALCIFEROL 25 MCG (1000 IU) TABLET PO SCH (09:30)
[2022-05-10] MEDS ORDERED: METOPROLOL TARTRATE 50 MG TAB PO SCH (09:30)
[2022-05-10] MEDS: CHLORTHALIDONE 25 MG TAB PO SCH (09:32)
[2022-05-10] MEDS: METOPROLOL TARTRATE 25 MG TAB PO SCH (10:11)
[2022-05-10 11:49] VITALS: BP 118/85; PULSE 80
--- NOTE | 2022-05-10 13:57 | P.PN ---
Subjective This is a pleasant 67-year-old female past medical history significant for persistent atrial fibrillation on Eliquis, History of cardioversion in 03/2022 and A fib ablation on 03/29/2022, atrial flutter s/p cardioversion most recently on 05/01/2022, hypertension, dyslipidemia . She follows in the office with Dr. Rogers. We have been asked to see in consultation for atrial flutter and chest pain. Patient is an examined in the ER, she presents to the ER with an episode this morning of nausea, "Feeling warm", chest pressure, and shortness of breath. She states she underwent a sleep study at home last night. She woke up around 4AM "not feeling well". She was nauseous, no emesis. She went back to bed and woke up with similar nausea, she ate breakfast, took her meds with no improvement. She endorses some midsternal chest pressure, non-radiating, non- exertional. She did feel anxious, had some shortness of breath. She endorsed the top of her right foot felt numb, which has resolved since admission. She denies any palpitaitons, lightheadedness, dizziness, syncope or near syncope, fever, cough, chills, headache, focal weakness, change in vision or speech, abdominal pain, emesis, diarrhea. She states she came to ER for further evaluation. She followed up in the office Yesterday 05/07. She was in atrial flutter with HR 62. She was having some symptoms of shortness of breath and anxious as well. She was scheduled with a follow up appointment to be evaluated by Dr. Muñoz for possible repeat ablation. She has been compliant with her medications. She was hypertensive on admission BP 151/112. Heart rates have been controlled. Chest discomfort has resolved. 05/10/2022 Patient seen and examined at bedside, no acute distress. She denies any chest pain, shortness of breath, lightheadedness or dizziness. She continued to be in atrial fibrillation/flutter with controlled ventricular rates, heart rate 6070s. Her blood pressure has improved. She is currently maintained on chlorthalidone 25 mg daily, metoprolol increased today to 100 mg twice a day. She is also on simvastatin, losartan 100 mg nightly and Eliquis 5 mg twice a day. PHYSICAL EXAMINATION Vitals reviewed CONSTITUTIONAL: No apparent distress. HEENT: Neck supple no JVD CHEST EXAMINATION: Lungs are clear to auscultation. No chest wall tenderness is noted on palpation or with deep breathing. HEART EXAMINATION: Irregular rate and rhythm. S1, S2 heard. Systolic murmur at apex. No gallops or rub. ABDOMEN: Soft, nontender. Positive bowel sounds. EXTREMITIES: 2+ peripheral pulses, no lower extremity edema and no calf tenderness. NEUROLOGIC EXAMINATION: Patient is awake, alert and oriented x3. ASSESSMENT Chest pain, atypical, likely related to hypertension, acute coronary syndrome has been ruled out Symptoms of shortness of breath Atypical atrial flutter, rates controlled Persistent atrial fibrillation on Eliquis History of cardioversion in 03/2022, and recently 05/01/2022 History of Atrial fibrillation ablation on 03/29/2022 Hypertension Dyslipidemia PLAN Patient's symptoms appear to be related to uncontrolled hypertension and have improved with BP control Patient evaluated by Dr. Muñoz, consider Entresto, will evaluate in the outpatient setting. Continue chlorathalidone 25mg daily Increase metoprolol to 100 mg BID Continue losartan and anticoagulation with Eliquis Amiodarone has been discontinued From cardiology perspective, patient is stable to be discharged home. Patient to follow up outpatient with Dr. Muñoz patient with appointment on 06/08/[address] Rogers, her primary machine heel seat laster. Nurse practitioner note has been reviewed by physician. Signing provider agrees with the documented findings, assessment, and plan of care. Objective - Vital Signs Vital signs: Vital Signs Temp 97.7 F 05/10/22 08:00 Pulse 80 05/10/22 11:47 Resp 16 05/10/22 08:00 BP 118/85 05/10/22 11:47 Pulse Ox 94 L 05/10/22 11:47 FiO2 Intake & Output 05/09/22 05/10/22 05/10/22 18:59 06:59 18:59 Intake Total 898 476 Balance 898 476 Weight 83.915 kg 83.915 kg Intake: Oral 898 476 Other: Voiding Method Toilet Toilet # Voids 2 1 - Labs CBC & Chem 7: 05/08/22 08:41 05/08/22 08:41
--- NOTE | 2022-05-10 14:58 | CA ---
Transthoracic Echo Report Name: Ce Ch Age: 67 Gender: F : 1955 Exam Date: 05/09/2022 15:30 Exam Location: [place] [facility] Ht (in): 67 Wt (lb): 185 Ordering Physician: Rosa Bourgeois Attending/Referring Phys: [id number] Head Resident Allyson Mijares RDCS Procedure CPT: Indications: LV function while in afib Cardiac Hx: Technical Quality: Contrast 1: Total Dose (mL): Contrast 2: Total Dose (mL): MEASUREMENTS (Male / Female) Normal Values 2D ECHO LV Diastolic Diameter PLAX 4.8 cm 4.2 - 5.9 / 3.9 - 5.3 cm LV Systolic Diameter PLAX 3.1 cm IVS Diastolic Thickness 0.9 cm 0.6 - 1.0 / 0.6 - 0.9 cm LVPW Diastolic Thickness 1.1 cm 0.6 - 1.0 / 0.6 - 0.9 cm LV Relative Wall Thickness 0.4 FINDINGS Left Ventricle Limited study. Normal Left ventricular size, wall thickness, systolic function with no obvious regional wall motion abnormalities. Normal Left ventricular diastolic filling pattern. Left ventricular ejection fraction is estimated at 50 %. Right Ventricle Right Atrium Left Atrium Mitral Valve Aortic Valve Tricuspid Valve Pulmonic Valve Pericardium Aorta CONCLUSIONS Improvement in LV systolic function, ejection fraction 50% Biatrial enlargement Previewed by: Dr. Joe Muñoz MD (Electronically Signed) Final Date: 10 May 2022 14:57
--- NOTE | 2022-05-10 18:52 | P.DS ---
Providers Date of admission: 05/08/22 09:51 Expected date of discharge: 05/10/22 Attending physician: Giovanni Deng Consults: 05/08/22 09:51 Consult Physician Routine Consulting Provider: Joe Muñoz Consult Reason/Comments: Atrial flutter, chest pain Do you want consulting provider notified?: Already Contacted Primary care physician: Birdie Jones [place] [facility] Course: Chief Complaint: Chest tightness Hospital course This is a pleasant 66 years old female with past medical history of Atrial Fibrillation/flutter on eliquis, breast Cancer, Hypertension. sees Dr. SHABANA Rogers her technology recruiter. Patient's had had prior ablation In the last few weeks she has seen her technology recruiter and medications are being adjusted. She had a DC cardioversion in March of this year. Did well for about a week then symptoms came back. Medications have been changed around.. About a week ago patient underwent cardioversion again. 4 days ago patient back into atrial flutter fibrillation. Patient did see her technology recruiter yesterday. Was feeling fair. This morning patient developed chest tightness. Became short of breath. That she will pass out. Tired rundown. Patient has not been sleeping well. Patient heart rate was controlled in the ER. May 09: Atrial flutter fibrillation rate controlled. Feeling better. Seen by Dr. Jacky Muñoz. Amiodarone being discontinued as she failed treatment with the same. He is considering using Entresto. Patient and had questions about heart chambers and other questions. Explained in detail. She informs me Dr. Jacky Muñoz told her that patient not a good candidate for any repeat ablation May 10: Patient does of Toprol has been increased to 100 mg twice daily. Doing well today. the patient appointment breathing exercises for situational anxiety. Questions answered. Patient follows with a technology recruiter and Dr. Jacky Muñoz upon discharge. Heart rate controlled Discussion and discharge planning more than 35 minutes Past medical history to include: Atrial fibrillation fibrillation, COPD, hypertension, breast cancer, Social history: Alcohol occasionally. Stopped smoking 6 years ago. Smoked on and off since a teenager. Family history: Cancer, heart problems Physical examination: VITAL SIGNS: 97.7, 105, 16, 11 8 x 77, 97% room air GENERAL: Up in bed, comfortable EYES: Pupils equal. Conjunctiva normal. HEENT: External appearance of nose and ears normal, oral cavity grossly normal. NECK: JVD not raised; masses not palpable. HEART: Heart sounds irregular; no edema. LUNGS: Respiratory rate normal; clear to auscultation. ABDOMEN: Soft, nontender, liver spleen not palpable, no masses palpable. PSYCH: Alert and oriented x3; mood and affect anxiousl. MUSCULOSKELETAL:No Clubbing/cyanosis;muscles-grossly intact, evidence of OA INVESTIGATIONS, reviewed in the clinical context: White count 6.7 hemoglobin 15.1 platelets 241 potassium 3.8 creatinine 0.68 magnesium 1.8 Troponin I 3 negative EKG tracing personally reviewed by me-atrial flutter rate 89 Chest x-ray film personally reviewed by me-hyperinflation Previous studies: 2-D echocardiogram [03/12/2022] year 55-60%. Moderate to severe mitral regurgitation. Tricuspid regurgitation. Assessment and plan: -Recurrent atrial fibrillation/ flutter. Has had prior ablation and cardioversion May 01. Back in atrial flutter. Symptomatic. Amiodarone discontinued.. Dr. Jacky Muñoz from EP consulted. Lopressor 100 mg twice a day, eliquis. -Hyperlipidemia Lipitor 10 mg daily at bedtime -Moderate to severe mitral regurgitation, tricuspid regurgitation Follow with cardiology -Essential hypertension Cozaar. Lopressor increased to 100 mg twice a day. No thyroid on 25 mg a day. -Situational anxiety Ativan when necessary -Insomnia due to medical conditions Ambien 2.5 mg daily at bedtime Disposition: Home Plan - Discharge Summary Discharge Rx Participant: Yes New Discharge Prescriptions: New Chlorthalidone [Hygroton] 25 mg PO DAILY #30 tab Metoprolol Tartrate [Lopressor] 100 mg PO BID #60 tab Continue Simvastatin [Zocor] 20 mg PO HS Cyclobenzaprine [Flexeril] 10 mg PO HS PRN PRN Reason: Spasms Sertraline [Zoloft] 100 mg PO DAILY Losartan Potassium [Cozaar] 100 mg PO HS Apixaban [Eliquis] 5 mg PO BID Cholecalciferol [Vitamin D3 (25 Mcg = 1000 Iu)] 50 mcg PO DAILY Albuterol Inhaler [Ventolin Hfa Inhaler] 1 - 2 puff INHALATION RT-Q6H PRN PRN Reason: Shortness Of Breath Discontinued Metoprolol Tartrate [Lopressor] 50 mg PO BID Amiodarone HCl [Pacerone] 200 mg PO DAILY Discharge Medication List Apixaban [Eliquis] 5 mg PO BID 03/10/22 [History] Cholecalciferol [Vitamin D3 (25 Mcg = 1000 Iu)] 50 mcg PO DAILY 03/10/22 [History] Simvastatin [Zocor] 20 mg PO HS 03/10/22 [History] Albuterol Inhaler [Ventolin Hfa Inhaler] 1 - 2 puff INHALATION RT-Q6H PRN 05/08/22 [History] Cyclobenzaprine [Flexeril] 10 mg PO HS PRN 05/08/22 [History] Losartan Potassium [Cozaar] 100 mg PO HS 05/08/22 [History] Sertraline [Zoloft] 100 mg PO DAILY 05/08/22 [History] Chlorthalidone [Hygroton] 25 mg PO DAILY #30 tab 05/10/22 [Rx] Metoprolol Tartrate [Lopressor] 100 mg PO BID #60 tab 05/10/22 [Rx] Follow up Appointment(s)/Referral(s): Joe Muñoz MD [STAFF PHYSICIAN] - 06/08/22 Lawrence Rogers MD [STAFF PHYSICIAN] - 3 Weeks (Office will call with appo intment) Birdie Jones MD [Primary Care Provider] - 1-2 days (office will call patient) Patient Instructions/Handouts: Atrial Flutter (DC) Activity/Diet/Wound Care/Special Instructions: dc if ok with cardiology Discharge Disposition: HOME SELF-CARE
== END 2022-05-10 14:20 | disposition home or self-care (01) ==
LOC: EC 07:57 → 6NMEDSUR 09:51 → 3SCARD 10:54
PROVIDERS: ADMIT Hospitalist; ATTEND Hospitalist
DX: R07.89 Other chest pain (principal); I48.4 Atypical atrial flutter; I48.19 Other persistent atrial fibrillation; I10 Essential (primary) hypertension; J44.9 Chronic obstructive pulmonary disease, unspecified; E78.5 Hyperlipidemia, unspecified; I08.1 Rheumatic disorders of both mitral and tricuspid valves; F41.9 Anxiety disorder, unspecified; G47.00 Insomnia, unspecified; I42.8 Other cardiomyopathies; I31.9 Disease of pericardium, unspecified; Z79.01 Long term (current) use of anticoagulants; Z79.899 Other long term (current) drug therapy; Z88.6 Allergy status to analgesic agent; Z85.3 Personal history of malignant neoplasm of breast; Z87.891 Personal history of nicotine dependence; Z80.9 Family history of malignant neoplasm, unspecified; Z82.49 Family history of ischemic heart disease and other diseases of the circulatory system; Z83.3 Family history of diabetes mellitus
CPT/HCPCS: 96360; 99285; 36415; 93005; 93308; 80053; 83735; 84484; 85025; 85610; 85730; 71046; G0378 ×4

== ENCOUNTER → 2023-12-18 | Outpatient (CLI) | payer BC, MEDICARE ==
[2023-12-18 16:50] LABS: HCT 42.7 % (37.2-46.3); HGB 14.7 g/dL (12.0-15.0); MCH 30.3 pg (27.0-32.0); MCHC 34.4 g/dL (32.0-37.0); Mean Platelet Volume 11.9 FL (9.5-12.2); NRBC Per 100 WBC 0 X 10*3/uL (0.00-0.01); Platelet Count 302 X 10*3/uL (140-440); RBC 4.85 X 10*6/uL (4.10-5.20); RDW 12.6 % (11.5-14.5); WBC 11.07 X 10*3/uL (4.50-10.00)
[2023-12-18 17:08] LABS: Blood Urea Nitrogen 15.9 mg/dL (9.0-27.0); Carbon Dioxide 26.1 mmol/L (21.6-31.8); Chloride 92 mmol/L (96-109); Potassium 3.3 mmol/L (3.5-5.5); Sodium 132 mmol/L (135-145)
== END | disposition home or self-care (01) ==
LOC: LABPAT 12:43
PROVIDERS: ATTEND Internal Medicine Interventional Cardiology
DX: Z01.812 Encounter for preprocedural laboratory examination (principal); I48.0 Paroxysmal atrial fibrillation
CPT/HCPCS: 36415; 80051; 82565; 84520; 85027

== ENCOUNTER 2023-12-19 09:28 | Day surgery (SDC) | payer BC, MEDICARE ==
--- NOTE | 2023-12-18 14:13 | HP ---
HISTORY AND PHYSICAL This patient is coming for electrical cardioversion tomorrow, so please have it at the preop area. HISTORY OF PRESENT ILLNESS: Mrs. Ce Ch is a 68-year-old lady with a known history of nonischemic cardiomyopathy related to atrial fibrillation for which she has had a radiofrequency ablation/pulmonary vein isolation performed in March of 2022 followed by electrical cardioversion. She has also had atrial flutter as well from time to time. She was doing well until about 3 days ago when she started noticing palpitations and she came in to the office today. EKG revealed atrial flutter, almost like a coarse fibrillation with a rate of about 128 beats per minute. She has been very consistent on Eliquis 5 mg b.i.d. She also has hypertension, hyperlipidemia, and previous history of alcoholism, which she has stopped for quite some time. I am recommending electrical cardioversion. The patient and her understand the rationale, risks, benefits, options and wished to proceed with the procedure scheduled for 10:30 a.m. on December 18 at [facility]. She will have a CBC, BMP checked today. Her medications include Eliquis 5 mg b.i.d. with which she is compliant. She also takes losartan 100 mg daily. Metoprolol tartrate which is now 50 mg 1 tablet t.i.d. since today, and simvastatin 20 mg daily. She also has obstructive sleep apnea, wears a CPAP on a regular basis. MEDICATIONS: 1. Eliquis 5 mg b.i.d. 2. Metoprolol tartrate 50 mg t.i.d. 3. Simvastatin 20 mg daily. 4. Losartan 100 mg daily. 5. Chlorthalidone 25 mg daily. PHYSICAL EXAMINATION: VITAL SIGNS: Blood pressure is 118/70, pulse rate is 124 per minute. HEENT: Unremarkable. Fundus was not examined. NECK: Supple. No JVD. HEART: S1, S2 heard normally, tachycardia noted. LUNGS: Revealed bilateral decent air entry. ABDOMEN: Soft. EXTREMITIES: Lower extremities reveal diminished pulses. Central nervous system is normal. IMPRESSION: 1. Atrial flutter/fibrillation, rate of nearly 128 beats per minute. 2. Nonischemic cardiomyopathy by history. 3. Hyperlipidemia. 4. Hypertension. RECOMMENDATIONS: I am advising electrical cardioversion which is scheduled for December 18 at 10:30 a.m. at [facility]. The patient and her understand rationale, risks, benefits, options and wished to proceed with the procedure. MMODL / IJN: [id number] /
[2023-12-19 10:01] VITALS: TEMP 96.8
[2023-12-19] MEDS: SODIUM CHLORIDE 0.9% 1,000 ML IV SCH (10:05)
[2023-12-19] MEDS ORDERED: LIDOCAINE 2% (PF) 20 MG/ML 5 ML VIAL ONE (10:28)
[2023-12-19] MEDS ORDERED: PROPOFOL 10 MG/ML 20 ML VIAL IV ONE (10:28)
[2023-12-19 11:43] VITALS: PULSE 73
[2023-12-19] MEDS: AMIODARONE 200 MG TAB PO STA (11:49)
[2023-12-19 12:18] VITALS: BP 120/71; RESP 17
--- NOTE | 2023-12-19 13:52 | CE ---
CARDIAC ELECTROPHYSIOLOGY REPORT PROCEDURES PERFORMED: Electrical cardioversion. INDICATION: Persistent symptomatic atrial fibrillation. CLINICAL INFORMATION: Ms. Ce Ch is a 68-year-old lady with a history of persistent atrial fibrillation, status post previous radiofrequency ablation about a year and a half ago, has been having recurrent episodes of palpation over the last week, and for the last 3 days, she was in atrial fibrillation at a rate of about 140 beats per minute. Some of it looks like atypical atrial flutter as well. However, she has been very compliant with Eliquis. She also has obstructive sleep apnea and nonischemic cardiomyopathy related to atrial fibrillation. She was brought in for electrical cardioversion this morning. PROCEDURE NOTE: Under the influence of [id number] intravenous anesthetic agent with the attendance of the anesthesiologist, a single shock was delivered at 120 joules with anterior and posterior patches. The patient converted to sinus rhythm, remained hemodynamically stable and neurologically intact. This was a successful electrical cardioversion. Details were discussed with the patient and . I will place her on amiodarone 200 mg one tablet b.i.d. for 1 week and then 1 tablet daily. She will be discharged later on today and I will see her in the office in 1 week. MMODL / IJN: [id number] /
== END 2023-12-19 12:15 | disposition home or self-care (01) ==
LOC: OR 09:28
PROVIDERS: ATTEND Internal Medicine Interventional Cardiology
DX: I48.19 Other persistent atrial fibrillation (principal); I42.8 Other cardiomyopathies; I10 Essential (primary) hypertension; E78.5 Hyperlipidemia, unspecified; G47.33 Obstructive sleep apnea (adult) (pediatric); Z79.01 Long term (current) use of anticoagulants; Z79.899 Other long term (current) drug therapy
CPT/HCPCS: 92960; J2704; J2001